=== PATIENT | female | born 1955 | race Caucasian/White ===

== ENCOUNTER 2019-08-30 15:32 | Outpatient (CLI) | payer OTHER, SELFPAY ==
[2019-08-30 15:46] LABS: Basophils Absolute Auto 0.1 K/mm3 (0.0-0.1); Basophils Percent Auto 0.5 % (0.2-1.2); Eosinophils Absolute Auto 0.2 K/mm3 (0-0.3); Eosinophils Percent Auto 1.8 % (0-4.4); Hematocrit 53.3 % (37.0-47.0); Hemoglobin 17.5 g/dL (12.0-15.0); Immature Granulocyte Absolute 0.06 K/mm3 (0.00-0.031); Immature Granulocyte Percent A 0.6 % (0-0.5); Lymphocytes Absolute Auto 2.81 K/mm3 (0.9-3.2); Lymphocytes Percent Auto 27.5 % (18.3-44.2); Mean Corpuscular HGB Conc 32.8 g/dl (32-36); Mean Corpuscular Hemoglobin 32.8 pg (26-34); Mean Platelet Volume 10.1 fl (7.4-10.4); Monocytes Absolute Auto 0.7 K/mm3 (0.1-0.6); Monocytes Percent Auto 6.8 % (2.6-8.5); Neutrophils Absolute Auto 6.4 K/mm3 (1.3-6.7); Neutrophils Percent Auto 62.8 % (45.5-73.1); Platelet Count Result 235 k/mm3 (150-375); Red Blood Count 5.33 M/mm3 (4.2-5.4); Red Cell Distribution Width 15.2 % (11.5-14.5); White Blood Count 10.2 K/mm3 (4.5-10.0)
[2019-08-30 16:46] LABS: Alanine Aminotransferase 18 U/L (4-35); Albumin Level 4.2 g/dL (3.5-5.1); Alkaline Phosphatase 84 U/L (38-126); Aspartate Amino Transferase 18 U/L (14-36); Bilirubin,Total 0.2 mg/dL (0.2-1.3); Blood Urea Nitrogen 19 mg/dL (7-17); Calcium 9.4 mg/dL (8.4-10.2); Carbon Dioxide 27 mmol/L (22-30); Chloride 103 mmol/L (98-107); Estimated Glomerular Filt Rate > 60; Glucose 118 mg/dL (65-105); Potassium 4.2 mmol/L (3.4-5.0); Sodium 138 mmol/L (137-145)
[2019-09-01 20:39] LABS: Erythropoietin (EPO) 20.9 mIU/mL (2.6-18.5)
== END 2019-08-30 15:33 | disposition home or self-care (01) ==
LOC: ANHLAB 15:34
PROVIDERS: PCP Family Medicine; Visit Provider Internal Medicine Hematology & Oncology
DX: D75.1 Secondary polycythemia (principal)
CPT/HCPCS: 36415; 80053; 82668; 85025

== ENCOUNTER 2020-02-25 13:39 | Outpatient (CLI) | payer OTHER, SELFPAY ==
--- NOTE | ~2020-02-25 | CT_ITS ---
EXAMINATION: CT lung screening DATE: 02/25/2020 14:22 INDICATION: Lung cancer screening. Tobacco dependence. Asthma. COPD. TECHNIQUE: Computed tomography (CT) of the chest was performed without intravenous contrast. The dose -length product was 379.29 mGy-cm. Automated exposure control and iterative reconstruction technique were employed. COMPARISON: CT dated 01/27/2019 FINDINGS: No thoracic lymphadenopathy. There is atherosclerosis of the aorta and coronary arteries. H eart size normal. No significant pleural or pericardial effusion. Moderate emphysema. No endobronchia l lesions. Calcified granuloma left lower lobe. There is left lower lobe atelectasis. No suspicious p ulmonary nodules or masses. Mild thoracic spondylosis. IMPRESSION: 1. Lung-RADS category 1: Negative. Continue annual screening with noncontrast low-dose chest CT in 12 months. Reviewed, dictated and finalized at location B. IMPRESSION: 1. Lung-RADS category 1: Negative. Continue annual screening with noncontrast l ow-dose chest CT in 12 months.
== END 2020-02-25 13:40 | disposition home or self-care (01) ==
PROVIDERS: PCP Family Medicine; Visit Provider Internal Medicine Critical Care Medicine
DX: Z12.2 Encounter for screening for malignant neoplasm of respiratory organs (principal); Z87.891 Personal history of nicotine dependence
CPT/HCPCS: G0297

== ENCOUNTER 2021-01-15 11:48 | Inpatient (IN) | payer OTHER, SELFPAY ==
[2021-01-15] VITALS (16 sets, daily range): BP systolic 95–127; BP diastolic 62–84; PULSE 63–120; RESP 21–31; TEMP 36.6–37.6; O2SAT 88–99; BMI 41.5
--- NOTE | ~2021-01-15 | CT_ITS ---
EXAMINATION: CTA chest PE protocol DATE: 01/15/2021 13:46 INDICATION: Shortness of breath. Elevated d-dimer. TECHNIQUE: Computed tomography angiography (CTA) of the chest was performed with 100 mL Omnipaque-350 intravenous contrast timed to evaluate the pulmonary arteries. Coronal maximum intensity projection 3D-reconstructions were created by the technologist. Automated exposure control and iterative reconst ruction technique were employed. Exam dose: 1170.90 mGy-cm total exam DLP. COMPARISON: 01/15/2021 portable AP chest 02/25/2020 CT lung screening FINDINGS: There is diagnostic contrast enhancement of the pulmonary arteries and no evidence of pulmo nary embolism. Cardiomegaly. No thoracic aortic aneurysm or dissection is evident. There is bilateral hilar and mediastinal lymphadenopathy, likely reactive. There are patchy bilateral pulmonary infiltrates, predominating in the dependent lower lobes. Emphysematous changes are noted. No pleural effusion. No pneumothorax. Status post cholecystectomy. Normal morphology of the adrenal glands. Included skeletal structures are unremarkable. IMPRESSION: Cardiomegaly Patchy bilateral pulmonary infiltrates, most prominent in the dependent bilateral lower lobes No evidence of pulmonary embolism Reviewed, dictated and finalized at Location A. Reviewed, dictated and finalized at location B. IMPRESSION: Cardiomegaly Patchy bilateral pulmonary infiltrates, most prominent in the dependent bilater al lower lobes No evidence of pulmonary embolism
--- NOTE | ~2021-01-15 | US_ITS ---
EXAMINATION: US venous doppler [facility] DATE: 01/19/2021 12:15 INDICATION: Positive Homans sign TECHNIQUE: Schwartz scale images without and with compression and Doppler images of the bilateral lower e xtremity veins were obtained. COMPARISON: None FINDINGS: The right common femoral vein, profunda femoral vein, femoral vein, popliteal vein, peroneal trunk, p osterior tibial veins, and greater saphenous vein are patent. The left common femoral vein, profunda femoral vein, femoral vein, popliteal vein, peroneal trunk, po sterior tibial veins, and greater saphenous vein are patent. IMPRESSION: 1. Patent bilateral lower extremity veins. No evidence of deep venous thrombosis. Reviewed, dictated and finalized at location B. IMPRESSION: 1. Patent bilateral lower extremity veins. No evidence of deep venous thrombosi s.
--- NOTE | ~2021-01-15 | XR_ITS ---
XR chest 1V portable 01/17/2021 06:01 Indication: CHF Procedure: AP portable chest, Comparison: 01/15/2021 Findings: Cardiomegaly with interstitial edema. Probable small pleural effusions. No pneumothorax. No acute osseous abnormality. Impression: 1: Cardiomegaly with mild interstitial edema. Reviewed, dictated and finalized at location A. Impression: 1: Cardiomegaly with mild interstitial edema.
--- NOTE | ~2021-01-15 | XR_ITS ---
XR chest 1V portable DATE: 01/19/2021 05:54 INDICATION: Dyspnea TECHNIQUE: Portable upright AP chest on 01/15/2021 at 0545 hours COMPARISON: 01/17/2021 portable AP chest at 0544 hours FINDINGS: Cardiomegaly. There is pulmonary vascular congestion and redistribution. Diffuse bilateral pulmonary interstitial prominence persists relatively unchanged since 01/17/2021, which may be due to p ulmonary edema, interstitial pneumonia superimposed upon chronic interstitial changes. IMPRESSION: No significant change since 01/17/2021. Cardiomegaly, pulmonary vascular congestion and red istribution, extensive pulmonary interstitial changes, suggesting congestive heart failure and pulmon trupti edema. Superimposed interstitial pneumonia and chronic underlying fibrotic change are not exclude d. Reviewed, dictated and finalized at location A. IMPRESSION: No significant change since 01/17/2021. Cardiomegaly, pulmonary vascu lar congestion and redistribution, extensive pulmonary interstitial changes, alegre ggesting congestive heart failure and pulmonary edema. Superimposed interstitia l pneumonia and chronic underlying fibrotic change are not excluded.
--- NOTE | ~2021-01-15 | XR_ITS ---
EXAMINATION: XR barium swallow modified DATE: 01/19/2021 14:41 INDICATION: Coughing. TECHNIQUE: The patient was given barium-containing material of multiple consistencies to swallow by ky portillo speech pathologist while I performed fluoroscopy. Dose-area product was 3.919 Gy-cm2. 4 minutes fluoroscopy time FINDINGS: Oral Stage: Normal Pharyngeal Phase: Trace laryngeal penetration with thin liquids and nectar thick liquids, mostly kiki ared with swallow No aspiration Cervical/Esophageal Stage: Within functional limits IMPRESSION: Modified esophagram findings as above. Please refer to the speech therapy report for spec ific recommendations. Reviewed, dictated and finalized at Location A. Reviewed, dictated and finalized at location A. IMPRESSION: Modified esophagram findings as above. Please refer to the speech t herapy report for specific recommendations.
--- NOTE | ~2021-01-15 | CT_ITS ---
EXAMINATION: CT brain wo con DATE: 01/19/2021 12:03 INDICATION: Confusion. TECHNIQUE: Computed tomography (CT) of the head was performed without intravenous contrast. The mA wa s adjusted according to patient size. Iterative reconstruction technique was employed. The dose-lengt h product was 605.33 mGy-cm. COMPARISON: None FINDINGS: There is no intracranial hemorrhage, acute infarction, or abnormal intracranial mass lesion . The ventricles are normal in size. There is mucosal thickening in the paranasal sinuses. There is t hickening and sclerosis of the jones of left maxillary sinus, consistent with chronic sinusitis. The mastoid air cells are normal. The orbits are normal. IMPRESSION: 1. Normal brain. 2. Chronic sinusitis. Reviewed, dictated and finalized at location A.
--- NOTE | ~2021-01-15 | XR_ITS ---
EXAMINATION: XR chest 1V portable INDICATION: Hypoxia and respiratory failure TECHNIQUE: Portable AP chest at 1204 hours COMPARISON: 02/25/2020, 08/31/2005 FINDINGS: Cardiomegaly is noted. There are airspace opacities of the mid and lower lung zones. No ple ural effusion or pneumothorax is identified. The visualized osseous structures are unremarkable. IMPRESSION: 1. Cardiomegaly. 2. Opacities of the mid and lower lung zones which could reflect atelectasis versus pneumonia versus pulmonary edema. Reviewed, dictated and finalized at location A. IMPRESSION: 1. Cardiomegaly. 2. Opacities of the mid and lower lung zones which could reflect atelectasis ve rsus pneumonia versus pulmonary edema.
--- NOTE | ~2021-01-15 | XR_ITS ---
EXAMINATION: XR chest 2V DATE: 01/21/2021 12:05 INDICATION: Chronic obstructive pulmonary disease. Congestive heart failure. TECHNIQUE: Frontal and lateral views of the chest were obtained. COMPARISON: Chest single view 01/19/2021, chest CT 01/15/2021 FINDINGS: There is a diffuse interstitial pattern in the lungs. There are small pleural effusions. No pneumothorax. Cardiomegaly is noted. IMPRESSION: 1. Diffuse interstitial pattern in the lungs, consistent with mild pulmonary edema. 2. Small pleural effusions. 3. Cardiomegaly. Reviewed, dictated and finalized at location A. IMPRESSION: 1. Diffuse interstitial pattern in the lungs, consistent with mild pulmonary ed kwaku. 2. Small pleural effusions. 3. Cardiomegaly.
--- NOTE | 2021-01-15 11:56 | ECG_ITS ---
Measurements Intervals [place] Rate: 89 P: 63 AR: 174 QRS: 124 QRSD: 88 T: 13 QT: 380 QTc: 463 Interpretive Statements SINUS RHYTHM LEFT ATRIAL ENLARGEMENT INCOMPLETE RIGHT BUNDLE BRANCH BLOCK BORDERLINE R WAVE PROGRESSION, ANTERIOR LEADS HIGH LATERAL INFARCT, AGE INDETERMINATE BORDERLINE ST-T WAVE ABNORMALITY- ANT/INF LEADS ABNORMAL ECG Electronically Signed On 01-15-2021 12:54:20 CDT by Robby Courtney D.O.
--- NOTE | 2021-01-15 12:04 | ED.SOB ---
HPI - SOB/Dyspnea General Chief Complaint: Shortness of Breath/Dyspnea Stated Complaint: SOB Time Seen by Provider: 01/15/21 11:49 Source: patient, EMS, RN notes reviewed and old records reviewed Mode of arrival: EMS Limitations: clinical condition History of Present Illness HPI Narrative: This is a 65 year old female smoker who presents for evaluation of shortness of breath that started today. PAtient reports shortness of breath today. She also reports a chronic cough. She denies chest pain, abdominal pain, nausea, vomiting or diarrhea . EMS reports they found patient at home lethargic with oxygen saturation of 60% on room air. She was placed on BIPAP by EMS and she was given neb tx, IVF, and solumedrol. Patient states she feels better. EMS reports patient is much improved. She was 99% on BIPAP. Related Data Home Medications Medication Instructions Recorded Confirmed aspirin 81 mg tablet 81 mg PO DAILY 06/12/19 01/15/21 cholecalciferol (vitamin D3) 1 unit PO DAILY 01/15/21 01/15/21 [Vitamin D3] Allergies Allergy/AdvReac Type Severity Reaction Status Date / Time No Known Allergies Allergy Unknown Verified 01/15/21 11:58 Review of Systems Review of Systems: All systems reviewed & are unremarkable except as noted in HPI and below PMFSH Past Medical History Medical History Centrilobular emphysema Claudication of both lower extremities COPD (chronic obstructive pulmonary disease) Hypothyroidism, acquired, autoimmune Hypoxemia Mixed hyperlipidemia Polycythemia secondary to hypoxia Tobacco abuse disorder Type 2 diabetes mellitus with hyperglycemia, without long-term current use of insulin Surgical History Surgical History History of tonsillectomy History of tubal ligation Family History Family History Mother Diabetes mellitus Hypertension Family history of arthritis Family history of thyroid disease Patient's mother is Sibling Diabetes mellitus Asthma Patient's brother is in good health Family history of thyroid disease Father Patient's father is in good health Social History Social History (Updated 09/24/20 @ 09:02 by Lisa Ochoa) Social History: Smoking packs per day: 2 Smoking cigarettes per day: 40.0 Years smoked: 50 Smoking pack-years: 100.00 Smoking status: Current every day smoker Tobacco type: cigarettes Second hand tobacco smoke exposure: Yes Alcohol intake: never Substance use: never Substance use type: does not use Additional living arrangements comments: Pt lives with her son Gender identity (if verbalized by the patient): Female Sexual Orientation (if Verbalized by the Patient): Straight or Heterosexual Spiritual care concerns: No Exam Const: General: ill appearing; No diaphoretic Nutritional Appearance: well nourished Orientation/consciousness: patient oriented x3 Eyes: Pupils: Equal, round and reactive pupils present EOM: EOMs intact bilaterally Chest: Chest palpation & inspection: normal inspection of the chest Resp: Effort & Inspection: normal respiratory effort, no retractions and tachypneic Auscultation: clear to auscultation bilaterally Cardio: Rate: regular rate Rhythm: regular rhythm Heart sounds: no murmurs GI: GI Palp: Yes Soft to palpation, No Tenderness to palpation present (GI) and No Guarding due to palpation present (GI) Auscultation: normal bowel sounds Skin: General skin exam: normal color Neuro: General: moves all extremities Psych: Mental Status: mental status grossly normal Affect: normal affect Course Reevaluation(s) Reevaluation #1: PAtient appears more awake. ABG shows mildly worse PCO2 so adjustments made to BIP AP with increase pressure and RR . Will reassess. She has no complaints.
[2021-01-15 12:06] LABS: Glucose Point of Care 298 mg/dl (65-105)
[2021-01-15 12:18] LABS: Basophils Absolute Auto 0.1 K/mm3 (0.0-0.1); Basophils Percent Auto 0.5 % (0.2-1.2); Hematocrit 59.2 % (37.0-47.0); Hemoglobin 19.4 g/dL (12.0-15.0); Immature Granulocyte Absolute 0.05 K/mm3 (0.00-0.031); Immature Granulocyte Percent A 0.5 % (0-0.5); Lymphocytes Absolute Auto 0.57 K/mm3 (0.9-3.2); Lymphocytes Percent Auto 5.8 % (18.3-44.2); Mean Corpuscular HGB Conc 32.8 g/dl (32-36); Mean Corpuscular Hemoglobin 32.7 pg (26-34); Mean Corpuscular Volume 99.8 fl (80-100); Mean Platelet Volume 10.3 fl (7.4-10.4); Monocytes Absolute Auto 0.9 K/mm3 (0.1-0.6); Monocytes Percent Auto 9.3 % (2.6-8.5); Neutrophils Absolute Auto 8.2 K/mm3 (1.3-6.7); Neutrophils Percent Auto 83.9 % (45.5-73.1); Platelet Count Result 167 k/mm3 (150-375); Red Blood Count 5.93 M/mm3 (4.2-5.4); Red Cell Distribution Width 21.1 % (11.5-14.5); White Blood Count 9.8 K/mm3 (4.5-10.0)
[2021-01-15 12:22] LABS: Alveolar/Arterial O2 Gradient 432.3 mmHg; Base Excess ABG -1.9 mEq/l (+/-2.0); Fractional Inspired Oxygen 80 %; Oxygen Content ABG 23.6 %vol (16.0-22.0); Oxygen Saturation ABG 95.7 % (95.0-100.0); Oxyhemoglobin 84.5 % THb (90.0-100.0); PCO2 ABG 49.7 mmHg (35.0-45.0); PO2 ABG 85.9 mmHg (80.0-100.0); PO2 FiO2 Ratio Arterial Blood 1.07 %; Total Hemoglobin 19.9 g/dL (12.0-18.0)
[2021-01-15 12:23] LABS: Add Urine Microscopic? YES; Appearance Urine Clear (Clear); Bacteria Urine Trace /hpf; Bilirubin Urine 2+ (Negative); Blood Urine Negative (Negative); Color Urine Amber (Yellow); Glucose Urine UA 2+ mg/dL (Negative); Hyaline Casts Urine 15-19 /lpf; Ketones Urine Negative (Negative); Leukocyte Esterase Ur Negative LEU/UL (Negative); Mucus Urine Few /lpf; Nitrate Urine Negative (Negative); Protein Urine 3+ mg/dL (Negative); RBC Urine 0-2 /hpf (0-2); Specific Grav Ur 1.028 (1.001-1.035); Squamous Epithelial Cell Urine Rare /hpf (Few); WBC Urine 0-3 /hpf
[2021-01-15 12:24] LABS: Device NON-INVASIVE VENT; Modified Allen's Test Pass; Site Drawn LEFT RADIAL
[2021-01-15 12:25] LABS: Non-Invasive Expiratory Pressure 6 CMH2O; Non-Invasive Inspiratory Pressure 12 CMH2O; Non-Invasive Vent Rate 16 /MIN
[2021-01-15 12:29] LABS: Alanine Aminotransferase 71 U/L (4-35); Albumin Level 3.9 g/dL (3.5-5.1); Alkaline Phosphatase 162 U/L (38-126); Anion Gap 6 mmol/L (8-16); Aspartate Amino Transferase 43 U/L (14-36); Bilirubin,Total 3.6 mg/dL (0.2-1.3); Blood Urea Nitrogen 22 mg/dL (7-17); Calcium 8.6 mg/dL (8.4-10.2); Carbon Dioxide 27 mmol/L (22-30); Chloride 100 mmol/L (98-107); Estimated CRCL calculation 101 ml/min; Estimated Glomerular Filt Rate > 60; Glucose 254 mg/dL (65-110); Magnesium 2.1 mg/dL (1.6-2.3); Potassium 4.3 mmol/L (3.4-5.0); Sodium 133 mmol/L (137-145)
[2021-01-15 12:30] LABS: Lactic Acid Reflex 1.2 mmol/L (0.7-2.1)
[2021-01-15 12:33] LABS: INR 1.1; Prothrombin Time 14.2 Seconds (11.1-14.7)
[2021-01-15 12:34] LABS: Partial Thromboplastin Time 29.2 SECONDS (22.3-36.8)
[2021-01-15 12:36] LABS: D Dimer 0.67 ug/mL (<0.48)
[2021-01-15 12:51] LABS: NT Pro B Type Natriuretic Pept 4970 pg/mL (5-100); Troponin I 0.036 ng/mL (0.000-0.034)
--- NOTE | 2021-01-15 13:57 | ECG_ITS ---
Measurements Intervals [place] Rate: 119 P: 178 MN: 211 QRS: 132 QRSD: 102 T: -53 QT: 330 QTc: 464 Interpretive Statements SINUS TACHYCARDIA WITH FIRST DEGREE AV BLOCK INCOMPLETE RIGHT BUNDLE BRANCH BLOCK BORDERLINE R WAVE PROGRESSION, ANTERIOR LEADS HIGH LATERAL INFARCT, AGE INDETERMINATE T WAVE ABNORMALITY IN ANT/INF LEADS- CONSIDER ISCHEMIA ABNORMAL ECG Electronically Signed On 01-15-2021 14:40:20 CDT by Robby Courtney D.O.
[2021-01-15 14:07] LABS: Alveolar/Arterial O2 Gradient 437.7 mmHg; Base Excess ABG -2.5 mEq/l (+/-2.0); Carboxyhemoglobin 9.7 % THb (0-2.0); Fractional Inspired Oxygen 80 %; HCO3 ABG 25.6 mEq/l (22.0-26.0); Methemoglobin ABG 0.6 %THb (0-1.5); Oxygen Content ABG 24.3 %vol (16.0-22.0); Oxygen Saturation ABG 93.1 % (95.0-100.0); Oxyhemoglobin 84.4 % THb (90.0-100.0); PCO2 ABG 55.4 mmHg (35.0-45.0); PO2 ABG 74.5 mmHg (80.0-100.0); PO2 FiO2 Ratio Arterial Blood 0.93 %; Reduced Hemoglobin 5.3 %THb (0-5.0); Total Hemoglobin 20.5 g/dL (12.0-18.0)
[2021-01-15 14:10] LABS: Device NON-INVASIVE VENT; Modified Allen's Test Pass; Non-Invasive Expiratory Pressure 6 CMH2O; Non-Invasive Inspiratory Pressure 12 CMH2O; Non-Invasive Vent Rate 16 /MIN; Site Drawn LEFT RADIAL; pH ABG 7.283 (7.350-7.450)
--- NOTE | 2021-01-15 14:10 | PC.NURSE ---
patient son requests updates : Shashi [phone]
[2021-01-15] MEDS: NICOTINE (*PBKC) 21 MG PATCH 1 PATCH TRANSDERM (17:14)
[2021-01-15 18:02] LABS: Troponin I 0.043 ng/mL (0.000-0.034)
--- NOTE | 2021-01-15 18:05 | ADMGEN ---
This patient, Sarah Rodriguez, was admitted to IMU Room 209-01 @ 1730. Patient/ oriented to hospital policies and general routines including ID bracelet, bed and alarms, visiting hours, pain management, procedures, bathroom and other care routines, personal items, smoking policy, room service/diet, and visiting hours. BIPAP ON 26/11 RATE 20 70% fio2. MONITOR ON SR 80'S Patient encouraged to report perceived risks to care and to ask questions if they do not understand what they are told or what they should do. . Purse and medication locked in closet- pt denied need she has items / that need to go in safe
[2021-01-15 18:30] LABS: Alveolar/Arterial O2 Gradient 348.9 mmHg; Base Excess ABG -2.2 mEq/l (+/-2.0); Carboxyhemoglobin 5.8 % THb (0-2.0); Fractional Inspired Oxygen 70 %; HCO3 ABG 26.5 mEq/l (22.0-26.0); Methemoglobin ABG 0.6 %THb (0-1.5); Oxygen Content ABG 26.5 %vol (16.0-22.0); Oxygen Saturation ABG 95.3 % (95.0-100.0); Oxyhemoglobin 89.7 % THb (90.0-100.0); PCO2 ABG 58.4 mmHg (35.0-45.0); PO2 ABG 87.4 mmHg (80.0-100.0); PO2 FiO2 Ratio Arterial Blood 1.25 %; Reduced Hemoglobin 3.9 %THb (0-5.0)
[2021-01-15 18:32] LABS: Modified Allen's Test Pass; Site Drawn LEFT RADIAL; pH ABG 7.274 (7.350-7.450)
[2021-01-15 18:33] LABS: Arterial Blood Gas PEEP 6 cmH2O; Arterial Blood Gas Ventilator rate 20 /MIN; Device NON-INVASIVE VENT; Peak Inspiratory Pressure 16 cmH2O
[2021-01-15 18:46] LABS: Glucose Point of Care 337 mg/dl (65-105)
[2021-01-15] MEDS: methylPREDNISolone SOD SUCC 125 MG VIAL 60 MG IV PUSH (18:49)
[2021-01-15 20:05] LABS: Troponin I 0.045 ng/mL (0.000-0.034)
[2021-01-15 21:16] LABS: Base Excess ABG -1.5 mEq/l (+/-2.0); Fractional Inspired Oxygen 70 %; Glucose Point of Care 332 mg/dl (65-105); HCO3 ABG 27.2 mEq/l (22.0-26.0); Methemoglobin ABG 0.7 %THb (0-1.5); Oxygen Content ABG 27.4 %vol (16.0-22.0); Oxygen Saturation ABG 97.2 % (95.0-100.0); Oxyhemoglobin 92.7 % THb (90.0-100.0); PCO2 ABG 59.3 mmHg (35.0-45.0); PO2 ABG 106.4 mmHg (80.0-100.0); PO2 FiO2 Ratio Arterial Blood 1.52 %; Reduced Hemoglobin 2.6 %THb (0-5.0)
[2021-01-15 21:21] LABS: pH ABG 7.279 (7.350-7.450)
[2021-01-15 21:22] LABS: Device NON-INVASIVE VENT; Modified Allen's Test Pass; Non-Invasive Expiratory Pressure 8 CMH2O; Non-Invasive Inspiratory Pressure 20 CMH2O; Non-Invasive Vent Rate 22 /MIN; Site Drawn RIGHT RADIAL
[2021-01-15] MEDS: FUROSEMIDE INJ 40 MG/4 ML VIAL IV PUSH (21:45)
[2021-01-15] MEDS: INSULIN ASPART (*BKC) 100 UNITS/ML SUB-Q (21:46)
[2021-01-16] VITALS (25 sets, daily range): BP systolic 106–122; BP diastolic 58–81; PULSE 55–88; RESP 20–26; TEMP 35.8–36.9; O2SAT 91–98
[2021-01-16] MEDS: methylPREDNISolone SOD SUCC 125 MG VIAL 60 MG IV PUSH ×5 (00:07→23:58)
[2021-01-16 00:29] LABS: Glucose Point of Care 353 mg/dl (65-105)
[2021-01-16] MEDS: INSULIN ASPART (*BKC) 100 UNITS/ML SUB-Q ×4 (01:47→17:30)
--- NOTE | 2021-01-16 03:33 | PM.IMHP ---
H&P: HPI History of Present Illness Date/Time: 01/16/21 03:33 Chief Complaint: SHORTNESS OF BREATH Narrative: THIS IS A 65-YEAR-OLD FEMALE WITH PAST MEDICAL HISTORY SIGNIFICANT FOR TYPE 2 DIABETES MELLITUS, DYSLIPIDEMIA, HYPOTHYROIDISM COPD. PATIENT PRESENTED TODAY TO THE EMERGENCY ROOM DUE TO WORSENING SHORTNESS OF BREATH SHE CURRENTLY SMOKES 2 PACKS OF CIGARETTES DAILY. HE EMS WAS CALLED TO THE HOUSE AND SHE WAS FOUND TO BE LETHARGIC WITH OXYGEN SATURATION OF 60% ON ROOM AIR SHE WAS PLACED ON BIPAP BY EMS AND GIVEN IV SOLU-MEDROL AND NEB TREATMENT ON ROUTE. AT THE TIME OF MY VISIT PATIENT WAS ON BIPAP SHE WAS REQUESTING SOMETHING TO EAT AND SHE WAS DENYING ANY DISCOMFORT AT THAT TIME. HISTORY STAY TEMO WAS OBVIOUSLY LIMITED DUE TO PATIENT BEING ON BIPAP. MOST OF THE HISTORY WAS OBTAINED FROM EMERGENCY ROOM MEDICAL RECORDS AND REVIEW OF CHART. PRELIMINARY WORKUP WAS SIGNIFICANT FOR CTA NEGATIVE FOR PULMONARY EMBOLISM AND PATCHY PULMONARY INFILTRATES. Review of Systems Review of Systems: ROS unobtainable: Yes unobtainable due to medical condition ( ON BIPAP) [facility] Past Medical History Medical History Centrilobular emphysema Claudication of both lower extremities COPD (chronic obstructive pulmonary disease) Hypothyroidism, acquired, autoimmune Hypoxemia Mixed hyperlipidemia Polycythemia secondary to hypoxia Tobacco abuse disorder Type 2 diabetes mellitus with hyperglycemia, without long-term current use of insulin Surgical History Surgical History History of tonsillectomy History of tubal ligation Family History Family History Mother Diabetes mellitus Hypertension Family history of arthritis Family history of thyroid disease Patient's mother is Sibling Diabetes mellitus Asthma Patient's brother is in good health Family history of thyroid disease Father Patient's father is in good health Social History Social History (Updated 09/24/20 @ 09:02 by Lisa Ochoa) Social History: Smoking packs per day: 2 Smoking cigarettes per day: 40.0 Years smoked: 50 Smoking pack-years: 100.00 Smoking status: Current every day smoker Tobacco type: cigarettes Second hand tobacco smoke exposure: Yes Alcohol intake: never Substance use: never Substance use type: does not use Additional living arrangements comments: Pt lives with her son Gender identity (if verbalized by the patient): Female Sexual Orientation (if Verbalized by the Patient): Straight or Heterosexual Spiritual care concerns: No Meds Home Medications and Allergies Home Medications Medication Instructions Recorded Confirmed Type aspirin 81 mg tablet 81 mg PO DAILY 06/12/19 01/15/21 History furosemide 20 mg tablet 20 mg PO QAM PRN #30 tablet 09/24/20 01/15/21 Rx levothyroxine 175 mcg tablet 175 mcg PO DAILY #90 tablet 09/25/20 01/15/21 Rx meloxicam 15 mg tablet 15 mg PO DAILY #90 tablet 09/25/20 01/15/21 Rx metformin 1,000 mg tablet 1,000 mg PO BID #180 tablet 09/25/20 01/15/21 Rx simvastatin 20 mg tablet 20 mg PO DAILY #90 tablet 09/25/20 01/15/21 Rx sitagliptin 100 mg tablet 100 mg PO DAILY #90 tablet 12/24/20 01/15/21 Rx fluticasone fur. 100 mcg-umeclid 1 inh INHALATION DAILY #60 each 01/01/21 01/15/21 Rx 62.5 mcg-vilant 25 mcg inhalat.powder albuterol sulfate 90 mcg/actuation 2 puff INHALATION Q4H PRN #18 gm 01/05/21 01/15/21 Rx aerosol inhaler cholecalciferol (vitamin D3) 1 unit PO DAILY 01/15/21 01/15/21 History [Vitamin D3] Allergies Allergy/AdvReac Type Severity Reaction Status Date / Time No Known Allergies Allergy Unknown Verified 01/15/21 11:58 Vital Signs Vital Signs - 24 hr 01/15/21 11:47 01/15/21 11:55 01/15/21 11:56 Temperature 99.7 F H Pulse Rate 94 93 Respiratory Rate 31 H Blood
[2021-01-16 04:01] LABS: Glucose Point of Care 300 mg/dl (65-105)
[2021-01-16 05:13] LABS: Basophils Percent Auto 0.2 % (0.2-1.2); Hematocrit 57.6 % (37.0-47.0); Hemoglobin 18.8 g/dL (12.0-15.0); Immature Granulocyte Absolute 0.04 K/mm3 (0.00-0.031); Immature Granulocyte Percent A 0.4 % (0-0.5); Lymphocytes Absolute Auto 0.53 K/mm3 (0.9-3.2); Lymphocytes Percent Auto 5.4 % (18.3-44.2); Mean Corpuscular HGB Conc 32.6 g/dl (32-36); Mean Corpuscular Hemoglobin 32.2 pg (26-34); Mean Corpuscular Volume 98.8 fl (80-100); Mean Platelet Volume 10.9 fl (7.4-10.4); Monocytes Absolute Auto 0.6 K/mm3 (0.1-0.6); Neutrophils Absolute Auto 8.7 K/mm3 (1.3-6.7); Platelet Count Result 181 k/mm3 (150-375); Red Blood Count 5.83 M/mm3 (4.2-5.4); Red Cell Distribution Width 20.7 % (11.5-14.5); White Blood Count 9.9 K/mm3 (4.5-10.0)
[2021-01-16 05:22] LABS: Alanine Aminotransferase 57 U/L (4-35); Albumin Level 3.3 g/dL (3.5-5.1); Alkaline Phosphatase 144 U/L (38-126); Anion Gap 3 mmol/L (8-16); Aspartate Amino Transferase 25 U/L (14-36); Bilirubin,Total 1.4 mg/dL (0.2-1.3); Blood Urea Nitrogen 24 mg/dL (7-17); Calcium 8.7 mg/dL (8.4-10.2); Carbon Dioxide 30 mmol/L (22-30); Chloride 99 mmol/L (98-107); Estimated CRCL calculation 108 ml/min; Estimated Glomerular Filt Rate > 60; Glucose 258 mg/dL (65-110); Potassium 4.6 mmol/L (3.4-5.0); Sodium 132 mmol/L (137-145)
[2021-01-16 05:30] LABS: NT Pro B Type Natriuretic Pept 2260 pg/mL (5-100)
[2021-01-16] MEDS: LEVOTHYROXINE SODIUM 100 MCG TABLET PO (05:54)
[2021-01-16] MEDS: LEVOTHYROXINE SODIUM 75 MCG TABLET PO (05:54)
[2021-01-16 06:09] LABS: Alveolar/Arterial O2 Gradient 258.1 mmHg; Base Excess ABG 0.3 mEq/l (+/-2.0); Carboxyhemoglobin 1.9 % THb (0-2.0); Device NON-INVASIVE VENT; Fractional Inspired Oxygen 55 %; HCO3 ABG 28.8 mEq/l (22.0-26.0); Methemoglobin ABG 0.5 %THb (0-1.5); Modified Allen's Test Pass; Oxygen Content ABG 26.1 %vol (16.0-22.0); Oxygen Saturation ABG 91.5 % (95.0-100.0); Oxyhemoglobin 90.1 % THb (90.0-100.0); PCO2 ABG 59.3 mmHg (35.0-45.0); PO2 ABG 68.1 mmHg (80.0-100.0); PO2 FiO2 Ratio Arterial Blood 1.24 %; Reduced Hemoglobin 7.5 %THb (0-5.0); Site Drawn LEFT RADIAL; Total Hemoglobin 20.7 g/dL (12.0-18.0); pH ABG 7.304 (7.350-7.450)
[2021-01-16 06:10] LABS: Non-Invasive Expiratory Pressure 8 CMH2O; Non-Invasive Inspiratory Pressure 20 CMH2O; Non-Invasive Vent Rate 22 /MIN
[2021-01-16 08:50] LABS: Glucose Point of Care 280 mg/dl (65-105)
[2021-01-16] MEDS: FUROSEMIDE INJ 40 MG/4 ML VIAL IV PUSH ×2 (08:51→17:31)
[2021-01-16] MEDS: NICOTINE (*PBKC) 21 MG PATCH 1 PATCH TRANSDERM (08:51)
[2021-01-16] MEDS: ASPIRIN 81 MG ENTERIC TABLET PO (08:52)
[2021-01-16] MEDS: CHOLECALCIFEROL 1,000 UNITS TABLET 5000 UNITS PO (08:52)
[2021-01-16] MEDS: ENOXAPARIN 40 MG/0.4 ML SYRINGE SUB-Q (08:52)
[2021-01-16] MEDS: SIMVASTATIN 20 MG TABLET PO (08:52)
--- NOTE | 2021-01-16 11:02 | PM.IMPN ---
Progress Note: A&P Assessment and Plan (1) Acute respiratory failure with hypoxia and hypercapnia: Code(s): J96.01 - Acute respiratory failure with hypoxia; J96.02 - Acute respiratory failure with hypercapnia Status: Acute Assessment and Plan: Patient found at home lethargic with a pulse ox of 60% on room air. Blood gas here was 7.32/50/86 on noninvasive ventilation 05/18. Etiology unclear but suspect multifactorial with CHF, PNA, COPD, undiagnosed ANIBAL and /or COVID. ABG this morning was 7.30/59/68 on 30/01. Will discuss with resp about her TV. Trial off the BiPAP today. (2) CHF (congestive heart failure): Code(s): I50.9 - Heart failure, unspecified Status: Acute Assessment and Plan: chest x-ray finding showing bilateral lower lobe airspace disease and cardiomegaly. Her BNP was 4970. She has pedal edema. This could be right heart failure from her chronic hypoxia. She may have LV dysfunction as well. Echocardiogram ordered. Continue Lasix IV. Monitor urine output. (3) Elevated troponin: Code(s): R77.8 - Other specified abnormalities of plasma proteins Status: Acute Assessment and Plan: Patient with mildly elevated troponins but flat overall. Suspect this is related to the respiratory failure as a nonischemic myocardial injury. (4) Pneumonia: Code(s): J18.9 - Pneumonia, unspecified organism Status: Acute Assessment and Plan: CXR showing bilateral lower lobe airspace disease. COVID testing obtained. Blood cultures collected. Will check sputum culture. Continue Rocephin azithromycin. Add nebulizer treatments. (5) Person under investigation for COVID-19: Code(s): Z20.822 - Contact with and (suspected) exposure to COVID-19 Status: Acute Assessment and Plan: COVID testing underway. Continue appropriate isolation. (6) Tobacco abuse disorder: Code(s): Z72.0 - Tobacco use Status: Acute Assessment and Plan: Patient smokes 2 packs a day. She was educated about the benefits of smoking cessation. Nicotine patch has been provided. (7) Type 2 diabetes mellitus with hyperglycemia, without long-term current use of insulin: Code(s): E11.65 - Type 2 diabetes mellitus with hyperglycemia Status: Acute Assessment and Plan: A1c 7.9 in November. Glucose is in the 200-300 range. Oral medications on hold. Continue sliding scale protocol. Hypoglycemia protocol available as needed. Add Lantus at night. (8) COPD (chronic obstructive pulmonary disease): Code(s): J44.9 - Chronic obstructive pulmonary disease, unspecified Status: Acute Assessment and Plan: COPD with exacerbation. Will continue her Trelegy. Add nebulizer treatments. Continue the Solu-Medrol. (9) Polycythemia secondary to hypoxia: Code(s): D75.1 - Secondary polycythemia Status: Acute Assessment and Plan: hemoglobin 19 on admission. This is a known finding for this patient. Most likely this was related to chronic hypoxia but Erythropoeitin level elevated in August. Check DONAVON (10) DVT prophylaxis: Code(s): Z29.9 - Encounter for prophylactic measures, unspecified Status: Acute Assessment and Plan: Lovenox Subjective Date/time seen: 01/16/21 11:02 Interval history: 65yo female with DM, COPD and tobacco abuse here for acute respiratory failure. Juana smokes up to 2ppd. She has been having pedal edema. She does sleep in the bed for a few hours but then a recliner due to pain and not SOB. No CP. COVID vaccine in September. No exposure to COVID that she is aware of. No anosmia or dysgeusia. No pleuritic chest pain or calf pain. She has a cough productive of yellowish sputum. No fevers but having chills at home. SOB much better today and requesting t have mask removed. SHe was able to come of the mask for breakfast and did well with nasal cannula
[2021-01-16] MEDS: IPRATROPIUM BR 0.02% INH SOLN 0.5 MG/2.5 ML VIAL INHALATION ×2 (13:29→20:39)
[2021-01-16] MEDS: ALBUTEROL SULFATE NEB 2.5 MG/0.5 ML INH INHALATION ×2 (13:29→20:39)
[2021-01-16 13:53] LABS: Glucose Point of Care 299 mg/dl (65-105)
[2021-01-16] MEDS: WATER FOR IRRIGATION, STERILE 1,000 ML BOTTLE 1000 ML (14:07)
[2021-01-16 17:12] LABS: Glucose Point of Care 372 mg/dl (65-105)
[2021-01-16 20:09] LABS: Glucose Point of Care 481 mg/dl (65-105)
[2021-01-16] MEDS: INSULIN HUMAN REGULAR (*BKC) 100 UNITS/ML 12 UNITS SUB-Q (21:01)
[2021-01-16] MEDS: INSULIN GLARGINE (*BKC) 100 UNITS/ML 18 UNITS SUB-Q (21:01)
[2021-01-17] VITALS (22 sets, daily range): BP systolic 91–124; BP diastolic 59–88; PULSE 57–87; RESP 16–31; TEMP 35.8–36.8; O2SAT 89–99
--- NOTE | 2021-01-17 | ECHO_ITS ---
Patient Info Name: Sarah Rodriguez Age: 65 years : 1955 Gender: Female Ht: 67 in Wt: 280 lbs BSA: 2.52 m2 HR: 83 bpm Technical Quality: Fair Exam Date: 01/17/2021 8:21 AM Exam Location: [facility] Patient Status: Inpatient Admit Date: 01/15/2021 Staff Ordering Physician: Chata Peterson MD Computer Instructor: Ekta Dawn RDCS Attending Provider: Ayesha Fuller MD Referring Physician: Nicholas ELIZABETH; Exam Type: CA echo dop color flow w con Study Info Complete two-dimensional, color flow and Doppler transthoracic echocardiogram is performed. Summary 1. Complete two-dimensional, color flow and Doppler transthoracic echocardiogram is performed. 2. Left ventricular chamber dimension is normal. 3. Left ventricular systolic function is normal, estimated at 60-65%. 4. There is moderately increased left ventricular wall thickness. 5. The left ventricular diastolic function is abnormal. 6. E/e' 18 is elevated. 7. Right ventricular chamber dimension is mildly enlarged. 8. Left atrial chamber dimension is mildly enlarged. 9. Right atrial chamber dimension is moderately enlarged. 10. There is mild mitral valve regurgitation. 11. There is mild tricuspid valve regurgitation. 12. Mild pulmonary hypertension, estimated pulmonary arterial systolic pressure is 43 mmHg. Left Ventricle E/e' 18 is elevated. Left ventricular chamber dimension is normal. Left ventricular systolic function is normal, estimated at 60-65%. There is moderately increased left ventricular wall thickness. The left ventricular diastolic function is abnormal. Right Ventricle Right ventricular systolic function is normal and with normal TAPSE 1.7 cm. Right ventricular chamber dimension is mildly enlarged. Left Atria Left atrial chamber dimension is mildly enlarged. Right Atria Right atrial chamber dimension is moderately enlarged. Aortic Valve The aortic valve is not well visualized. There is no aortic valve stenosis. There is no aortic valve regurgitation. Pulmonic Valve There is no pulmonic regurgitation. Mitral Valve There is no mitral valve stenosis. There is mild mitral valve regurgitation. Tricuspid Valve There is mild tricuspid valve regurgitation. Mild pulmonary hypertension, estimated pulmonary arterial systolic pressure is 43 mmHg. Pericardium/Pleural There is no pericardial effusion. Inferior Vena Cava Normal inferior vena cava with >50% collapse upon inspiration consistent with normal right atrial pressure, 5 mmHg. Aorta The aortic root size at the sinus of Valsalva is normal. Left Ventricular Outflow Tract Name Value Normal LVOT 2D LVOT Diameter 1.95 cm LVOT Doppler LVOT Peak Gradient 3 mmHg LVOT Mean Gradient 1 mmHg LVOT VTI 22.43 cm LVOT VTI/AV VTI Ratio 0.78 LVOT Stroke Volume 59.51 ml LVOT CO 4.84 l/min LVOT CI 2.08 L/min/m2 Mitral Valve
[2021-01-17 00:06] LABS: Glucose Point of Care 386 mg/dl (65-105)
[2021-01-17 00:31] LABS: Glucose Point of Care 380 mg/dl (65-105)
[2021-01-17] MEDS: ALBUTEROL SULFATE NEB 2.5 MG/0.5 ML INH INHALATION ×4 (01:37→19:34)
[2021-01-17] MEDS: IPRATROPIUM BR 0.02% INH SOLN 0.5 MG/2.5 ML VIAL INHALATION ×4 (01:38→19:35)
[2021-01-17 02:04] LABS: SARS-CoV-2 RNA PCR Negative
[2021-01-17 04:15] LABS: Alveolar/Arterial O2 Gradient 199.8 mmHg; Base Excess ABG 3.9 mEq/l (+/-2.0); Fractional Inspired Oxygen 55 %; HCO3 ABG 33.7 mEq/l (22.0-26.0); Oxygen Saturation ABG 97.8 % (95.0-100.0); Oxyhemoglobin 96.1 % THb (90.0-100.0); PO2 FiO2 Ratio Arterial Blood 2.11 %; Total Hemoglobin 20.7 g/dL (12.0-18.0); pH ABG 7.309 (7.350-7.450)
[2021-01-17 04:18] LABS: Device NON-INVASIVE VENT; Modified Allen's Test Pass; Non-Invasive Vent Rate 22 /MIN; PCO2 ABG 68.6 mmHg (35.0-45.0); Site Drawn RIGHT RADIAL
[2021-01-17 04:19] LABS: Non-Invasive Expiratory Pressure 8 CMH2O; Non-Invasive Inspiratory Pressure 20 CMH2O
[2021-01-17] MEDS: LEVOTHYROXINE SODIUM 100 MCG TABLET PO (05:59)
[2021-01-17] MEDS: LEVOTHYROXINE SODIUM 75 MCG TABLET PO (05:59)
[2021-01-17 06:02] LABS: Basophils Percent Auto 0.2 % (0.2-1.2); Hemoglobin 19.3 g/dL (12.0-15.0); Immature Granulocyte Absolute 0.06 K/mm3 (0.00-0.031); Immature Granulocyte Percent A 0.6 % (0-0.5); Lymphocytes Absolute Auto 0.43 K/mm3 (0.9-3.2); Mean Corpuscular HGB Conc 32.2 g/dl (32-36); Mean Corpuscular Hemoglobin 32.1 pg (26-34); Mean Corpuscular Volume 99.8 fl (80-100); Mean Platelet Volume 10.6 fl (7.4-10.4); Monocytes Absolute Auto 0.5 K/mm3 (0.1-0.6); Monocytes Percent Auto 4.8 % (2.6-8.5); Neutrophils Absolute Auto 9.8 K/mm3 (1.3-6.7); Neutrophils Percent Auto 90.4 % (45.5-73.1); Platelet Count Result 173 k/mm3 (150-375); Red Blood Count 6.01 M/mm3 (4.2-5.4); Red Cell Distribution Width 20.4 % (11.5-14.5); White Blood Count 10.8 K/mm3 (4.5-10.0)
[2021-01-17 06:15] LABS: Alanine Aminotransferase 62 U/L (4-35); Albumin Level 3.6 g/dL (3.5-5.1); Alkaline Phosphatase 154 U/L (38-126); Anion Gap 7 mmol/L (8-16); Aspartate Amino Transferase 35 U/L (14-36); Bilirubin,Total 1.1 mg/dL (0.2-1.3); Blood Urea Nitrogen 39 mg/dL (7-17); Calcium 9.3 mg/dL (8.4-10.2); Carbon Dioxide 29 mmol/L (22-30); Chloride 99 mmol/L (98-107); Estimated CRCL calculation 94 ml/min; Estimated Glomerular Filt Rate > 60; Glucose 307 mg/dL (65-110); Magnesium 2.3 mg/dL (1.6-2.3); Phosphorus 4.3 mg/dL (2.5-4.5); Potassium 4.9 mmol/L (3.4-5.0); Sodium 135 mmol/L (137-145)
[2021-01-17 06:49] LABS: Hemoglobin A1C 7.8 % (<5.7)
[2021-01-17 09:04] LABS: Glucose Point of Care 341 mg/dl (65-105)
--- NOTE | 2021-01-17 09:40 | PM.IMPN ---
Progress Note: A&P Assessment and Plan (1) Acute respiratory failure with hypoxia and hypercapnia: Code(s): J96.01 - Acute respiratory failure with hypoxia; J96.02 - Acute respiratory failure with hypercapnia Status: Acute Assessment and Plan: Patient found at home lethargic with a pulse ox of 60% on room air. Blood gas here was 7.32/50/86 on noninvasive ventilation 05/18. Etiology unclear but suspect multifactorial with CHF, PNA, COPD, undiagnosed ANIBAL and /or COVID. ABG this morning was 7.30/59/68 on 30/01. Elevated D-dimer on admission Nasal cannula during daytime and BiPAP at night Chest x-ray reviewed persistent interstitial edema however looks improved compared to admission chest x-ray Continue IV diuresis and IV antibiotics as ordered CTA negative for PE but did notes patchy bilateral pulmonary infiltrates most prominently dependent bilateral lower lobes ABG on 01/17/2021 with 7.30/68/116/33 COVID test negative Elevated BNP Continue diuresis IV (2) CHF (congestive heart failure): Code(s): I50.9 - Heart failure, unspecified Status: Acute Assessment and Plan: chest x-ray finding showing bilateral lower lobe airspace disease and cardiomegaly. Her BNP was 4970. She has pedal edema. This could be right heart failure from her chronic hypoxia. She may have LV dysfunction as well. Echocardiogram ordered is pending. Continue Lasix IV. Monitor urine output. Flat troponin trend (3) Elevated troponin: Code(s): R77.8 - Other specified abnormalities of plasma proteins Status: Acute Assessment and Plan: Patient with mildly elevated troponins but flat overall. Suspect this is related to the respiratory failure as a nonischemic myocardial injury. (4) Pneumonia: Code(s): J18.9 - Pneumonia, unspecified organism Status: Acute Assessment and Plan: CXR showing bilateral lower lobe airspace disease. COVID testing obtained. Blood cultures collected. Will check sputum culture. Continue Rocephin azithromycin. Add nebulizer treatments. (5) Person under investigation for COVID-19: Code(s): Z20.822 - Contact with and (suspected) exposure to COVID-19 Status: Acute Assessment and Plan: COVID testing negative (6) Tobacco abuse disorder: Code(s): Z72.0 - Tobacco use Status: Acute Assessment and Plan: Patient smokes 2 packs a day. She was educated about the benefits of smoking cessation. Nicotine patch has been provided. (7) Type 2 diabetes mellitus with hyperglycemia, without long-term current use of insulin: Code(s): E11.65 - Type 2 diabetes mellitus with hyperglycemia Status: Acute Assessment and Plan: A1c 7.9 in November. Oral medications on hold. Continue sliding scale protocol. Hypoglycemia protocol available as needed. Add Lantus at night. adjust Insulin A1c of 7.8 (8) COPD (chronic obstructive pulmonary disease): Code(s): J44.9 - Chronic obstructive pulmonary disease, unspecified Status: Acute Assessment and Plan: COPD with exacerbation. Will continue her Trelegy. Add nebulizer treatments. Continue the Solu-Medrol. (9) Polycythemia secondary to hypoxia: Code(s): D75.1 - Secondary polycythemia Status: Acute Assessment and Plan: hemoglobin 19 on admission. This is a known finding for this patient. Most likely this was related to chronic hypoxia but Erythropoeitin level elevated in August. Check DONAVON 2 mutation which is pending (10) DVT prophylaxis: Code(s): Z29.9 - Encounter for prophylactic measures, unspecified Status: Acute Assessment and Plan: Lovenox Subjective Date/time seen: 01/17/21 09:40 Interval history: 65yo female with DM, COPD and tobacco abuse here for acute respiratory failure. He felt a little better today compared to yesterday. Still has cough with expectoration. Leg swelling
[2021-01-17] MEDS: INSULIN ASPART (*BKC) 100 UNITS/ML SUB-Q ×3 (09:49→17:04)
[2021-01-17] MEDS: ASPIRIN 81 MG ENTERIC TABLET PO (09:51)
[2021-01-17] MEDS: CHOLECALCIFEROL 1,000 UNITS TABLET 5000 UNITS PO (09:51)
[2021-01-17] MEDS: SIMVASTATIN 20 MG TABLET PO (09:52)
[2021-01-17] MEDS: NICOTINE (*PBKC) 21 MG PATCH 1 PATCH TRANSDERM (09:52)
[2021-01-17] MEDS: ENOXAPARIN 40 MG/0.4 ML SYRINGE SUB-Q (09:53)
[2021-01-17] MEDS: FUROSEMIDE INJ 40 MG/4 ML VIAL IV PUSH ×2 (09:53→17:06)
[2021-01-17] MEDS: methylPREDNISolone SOD SUCC 125 MG VIAL 60 MG IV PUSH ×3 (09:53→17:06)
[2021-01-17] MEDS: INSULIN ASPART (*BKC) 100 UNITS/ML 10 UNITS SUB-Q ×2 (12:24→17:04)
[2021-01-17] MEDS: FLUTICASONE/UMECLIDIN/VILANTER 100-62.5-25 MCG ELLIPTA 1 PUFF INHALATION (12:30)
[2021-01-17 13:10] LABS: Glucose Point of Care 333 mg/dl (65-105)
--- NOTE | 2021-01-17 13:20 | PC.NURSE ---
This patient, Sarah Rodriguez, was received from IMU on 01/17/21 at 1320. Patient/family oriented to unit policies and routines. Received report from RAY Barrera.
[2021-01-17 16:53] LABS: Glucose Point of Care 286 mg/dl (65-105)
[2021-01-17 20:04] LABS: Glucose Point of Care 342 mg/dl (65-105)
[2021-01-17] MEDS: INSULIN GLARGINE (*BKC) 100 UNITS/ML 24 UNITS SUB-Q (21:01)
[2021-01-17] MEDS: INSULIN ASPART (*BKC) 100 UNITS/ML 6 UNITS SUB-Q (21:03)
[2021-01-17 23:34] LABS: Glucose Point of Care 266 mg/dl (65-105)
[2021-01-18] VITALS (21 sets, daily range): BP systolic 100–144; BP diastolic 59–80; PULSE 53–74; RESP 18–27; TEMP 35.8–36.7; O2SAT 92–98
[2021-01-18] MEDS: methylPREDNISolone SOD SUCC 125 MG VIAL 60 MG IV PUSH ×4 (00:17→17:28)
[2021-01-18] MEDS: LEVOTHYROXINE SODIUM 100 MCG TABLET PO (05:34)
[2021-01-18] MEDS: LEVOTHYROXINE SODIUM 75 MCG TABLET PO (05:34)
[2021-01-18 07:06] LABS: Basophils Percent Auto 0.3 % (0.2-1.2); Hematocrit 63.6 % (37.0-47.0); Hemoglobin 19.7 g/dL (12.0-15.0); Immature Granulocyte Absolute 0.09 K/mm3 (0.00-0.031); Immature Granulocyte Percent A 0.8 % (0-0.5); Lymphocytes Percent Auto 5.2 % (18.3-44.2); Mean Corpuscular Hemoglobin 31.9 pg (26-34); Mean Corpuscular Volume 103.1 fl (80-100); Mean Platelet Volume 10.3 fl (7.4-10.4); Monocytes Absolute Auto 0.5 K/mm3 (0.1-0.6); Monocytes Percent Auto 4.6 % (2.6-8.5); Neutrophils Absolute Auto 10.3 K/mm3 (1.3-6.7); Neutrophils Percent Auto 89.1 % (45.5-73.1); Platelet Count Result 167 k/mm3 (150-375); Red Blood Count 6.17 M/mm3 (4.2-5.4); Red Cell Distribution Width 20.8 % (11.5-14.5); White Blood Count 11.5 K/mm3 (4.5-10.0)
[2021-01-18 07:26] LABS: Blood Urea Nitrogen 37 mg/dL (7-17); Calcium 9.8 mg/dL (8.4-10.2); Carbon Dioxide > 40 mmol/L (22-30); Chloride 88 mmol/L (98-107); Estimated CRCL calculation 94 ml/min; Estimated Glomerular Filt Rate > 60; Glucose 237 mg/dL (65-110); Potassium 4.3 mmol/L (3.4-5.0); Sodium 137 mmol/L (137-145)
[2021-01-18 07:45] LABS: Glucose Point of Care 249 mg/dl (65-105)
[2021-01-18] MEDS: INSULIN ASPART (*BKC) 100 UNITS/ML SUB-Q (08:18)
[2021-01-18] MEDS: INSULIN ASPART (*BKC) 100 UNITS/ML 10 UNITS SUB-Q ×3 (08:18→18:15)
[2021-01-18] MEDS: CHOLECALCIFEROL 1,000 UNITS TABLET 5000 UNITS PO (08:21)
[2021-01-18] MEDS: ASPIRIN 81 MG ENTERIC TABLET PO (08:21)
[2021-01-18] MEDS: NICOTINE (*PBKC) 21 MG PATCH 1 PATCH TRANSDERM (08:22)
[2021-01-18] MEDS: FUROSEMIDE INJ 40 MG/4 ML VIAL IV PUSH ×2 (08:22→17:28)
[2021-01-18] MEDS: SIMVASTATIN 20 MG TABLET PO (08:22)
[2021-01-18] MEDS: ENOXAPARIN 40 MG/0.4 ML SYRINGE SUB-Q (08:22)
[2021-01-18 10:41] LABS: Alveolar/Arterial O2 Gradient 395.1 mmHg; Base Excess ABG 10.7 mEq/l (+/-2.0); Fractional Inspired Oxygen 80 %; HCO3 ABG 41.4 mEq/l (22.0-26.0); Oxygen Content ABG 28.5 %vol (16.0-22.0); Oxygen Saturation ABG 96.9 % (95.0-100.0); PO2 ABG 97.4 mmHg (80.0-100.0); PO2 FiO2 Ratio Arterial Blood 1.22 %; Total Hemoglobin 21.1 g/dL (12.0-18.0); pH ABG 7.364 (7.350-7.450)
[2021-01-18 10:42] LABS: Device HIGH FLOW NASAL CANN; Modified Allen's Test Pass; PCO2 ABG 74.2 mmHg (35.0-45.0); Site Drawn RIGHT RADIAL
--- NOTE | 2021-01-18 10:57 | PCRCNOTE ---
Window of time for administration has passed. See next scheduled administration.
[2021-01-18] MEDS: ALBUTEROL SULFATE NEB 2.5 MG/0.5 ML INH INHALATION ×2 (11:31→21:10)
[2021-01-18] MEDS: IPRATROPIUM BR 0.02% INH SOLN 0.5 MG/2.5 ML VIAL INHALATION ×2 (11:31→21:10)
[2021-01-18 11:54] LABS: Glucose Point of Care 264 mg/dl (65-105)
[2021-01-18] MEDS: FLUTICASONE/UMECLIDIN/VILANTER 100-62.5-25 MCG ELLIPTA 1 PUFF INHALATION (13:29)
[2021-01-18 16:09] LABS: Alveolar/Arterial O2 Gradient 169.5 mmHg; Base Excess ABG 13.2 mEq/l (+/-2.0); Fractional Inspired Oxygen 45 %; HCO3 ABG 43.5 mEq/l (22.0-26.0); Oxygen Content ABG 27.6 %vol (16.0-22.0); Oxygen Saturation ABG 93.5 % (95.0-100.0); Oxyhemoglobin 93.4 % THb (90.0-100.0); PO2 FiO2 Ratio Arterial Blood 1.56 %; Total Hemoglobin 21.1 g/dL (12.0-18.0); pH ABG 7.402 (7.350-7.450)
[2021-01-18 16:11] LABS: PCO2 ABG 71.5 mmHg (35.0-45.0)
[2021-01-18 16:12] LABS: Device NON-INVASIVE VENT; Site Drawn LEFT BRACHIAL
[2021-01-18 16:13] LABS: Non-Invasive Expiratory Pressure 8 CMH2O; Non-Invasive Inspiratory Pressure 20 CMH2O; Non-Invasive Vent Rate 22 /MIN
[2021-01-18 17:03] LABS: Glucose Point of Care 177 mg/dl (65-105)
--- NOTE | 2021-01-18 17:24 | PM.IMPN ---
Progress Note: A&P Assessment and Plan (1) Acute respiratory failure with hypoxia and hypercapnia: Code(s): J96.01 - Acute respiratory failure with hypoxia; J96.02 - Acute respiratory failure with hypercapnia Status: Acute Assessment and Plan: - likely a COPD exacerbation, patient smokes 2 packs per day and has significant wheezing on exam - patient has been on 60 mg q.6 hours for 3 days of Solu-Medrol, will start weaning, down to 40mg q.6 today - patient has been undergoing aggressive diuresis may be developing contraction alkalosis, echocardiogram showed normal systolic function and abnormal diastolic dysfunction. I believe her symptoms are more likely COPD exacerbation as opposed to CHF. chest x-ray did show some mild interstitial edema, she has been diuresing pretty aggressively with net -3 L urine output. at this time I will stop the scheduled Lasix and re-evaluate for p.r.n. Lasix - pH has normalized however her hypercapnia is worsening likely secondary to receiving too much oxygen as she was 97% oxygen saturation. hypercapnia improved slightly when FiO2 was decreased from 55% to 45%. - continue DuoNebs scheduled for now - antibiotics: Rocephin/azithromycin, afebrile, normal white blood cell count, no sputum production will re-evaluate tomorrow but may discontinue altogether as she has no clinical signs of pneumonia. initial chest x-ray did have signs of mid and lower lung opacities concerning for edema versus pneumonia. (2) Bradycardia: Code(s): R00.1 - Bradycardia, unspecified Status: Acute Assessment and Plan: asymptomatic bradycardia, heart rate in the 50s. No beta-blockers or rate control medications on chart review (3) Hypothyroidism, acquired, autoimmune: Code(s): E06.3 - Autoimmune thyroiditis Status: Acute Assessment and Plan: continue home thyroid medication (4) Obesity due to excess calories: Code(s): E66.09 - Other obesity due to excess calories Status: Acute Assessment and Plan: patient will need a weight loss plan in the future as it may be contributing to her obesity hypoventilation (5) Obesity hypoventilation syndrome: Code(s): E66.2 - Morbid (severe) obesity with alveolar hypoventilation Status: Acute Assessment and Plan: patient likely has obesity hypoventilation based on her body habitus and persistent hypercapnia (6) Insulin dependent diabetes mellitus: Status: Acute Assessment and Plan: continue long-acting and short-acting insulin, sliding scale insulin, Accu-Cheks a.c. HS, hypoglycemia protocol Additional Plan Diet: Diabetic heart healthy DVT prophylaxis: Lovenox GI prophylaxis: starting Pepcid b.i.d. while on high-dose steroid Code status: full code Disposition: pending clinical course Time Spent With Patient Time with patient: Greater than 35 minutes Subjective Date/time seen: 01/18/21 17:24 Patient examined. She is continuing to be diuresed, net -3 L urine output. She is not confused today however was persistently hypercapnic despite pH normalizing. she was placed on BiPAP for 4 hours to treat hypercapnia. She otherwise has no new complaints. She was not lethargic on my evaluation today. Patient denies fever, chills, nausea, vomiting, diarrhea. she does endorse dyspnea. Review of Systems Review of Systems: All systems reviewed & are unremarkable except as noted in HPI and below Exam Narrative: - GENERAL: pleasant obese female in respiratory distress tachypneic on BiPAP. - EYES: EOMI. Anicteric. - HENT: Moist mucous membranes. - LUNGS: Diminished lung sounds throughout, inspiratory and expiratory wheezing present. - CARDIOVASCULAR: Regular rate and rhythm. Difficult to auscultate. - ABDOMEN: Soft, non-tender and non-distended. No palpable masses. - EXTREMITIES: No edema. Peripheral pulses 2+. Non-tender. - NEUROLOGIC: No focal neurological deficits. CN II-XII grossly intac
[2021-01-18 20:18] LABS: Glucose Point of Care 251 mg/dl (65-105)
[2021-01-18] MEDS: FAMOTIDINE 20 MG TABLET PO (21:55)
[2021-01-18] MEDS: INSULIN GLARGINE (*BKC) 100 UNITS/ML 24 UNITS SUB-Q (22:51)
[2021-01-18] MEDS: methylPREDNISolone SOD SUCC 40 MG VIAL IV PUSH (23:28)
[2021-01-19] VITALS (13 sets, daily range): BP systolic 106–157; BP diastolic 52–88; PULSE 52–72; RESP 20–22; TEMP 36.1–37.1; O2SAT 91–96
[2021-01-19] MEDS: ALBUTEROL SULFATE NEB 2.5 MG/0.5 ML INH INHALATION ×2 (04:07→19:48)
[2021-01-19] MEDS: IPRATROPIUM BR 0.02% INH SOLN 0.5 MG/2.5 ML VIAL INHALATION ×2 (04:07→19:48)
[2021-01-19] MEDS: LEVOTHYROXINE SODIUM 100 MCG TABLET PO (05:31)
[2021-01-19] MEDS: LEVOTHYROXINE SODIUM 75 MCG TABLET PO (05:31)
[2021-01-19] MEDS: methylPREDNISolone SOD SUCC 40 MG VIAL IV PUSH ×2 (05:31→18:03)
[2021-01-19 06:45] LABS: Hematocrit 62.7 % (37.0-47.0); Hemoglobin 19.5 g/dL (12.0-15.0); Mean Corpuscular HGB Conc 31.1 g/dl (32-36); Mean Corpuscular Hemoglobin 32.2 pg (26-34); Mean Corpuscular Volume 103.5 fl (80-100); Mean Platelet Volume 10.9 fl (7.4-10.4); Platelet Count Result 170 k/mm3 (150-375); Red Blood Count 6.06 M/mm3 (4.2-5.4); White Blood Count 13.7 K/mm3 (4.5-10.0)
[2021-01-19 07:08] LABS: Blood Urea Nitrogen 31 mg/dL (7-17); Calcium 9.7 mg/dL (8.4-10.2); Carbon Dioxide > 40 mmol/L (22-30); Chloride 89 mmol/L (98-107); Estimated CRCL calculation 108 ml/min; Estimated Glomerular Filt Rate > 60; Glucose 153 mg/dL (65-110); Magnesium 2.2 mg/dL (1.6-2.3); Potassium 3.8 mmol/L (3.4-5.0); Sodium 140 mmol/L (137-145)
[2021-01-19] MEDS: NICOTINE (*PBKC) 21 MG PATCH 1 PATCH TRANSDERM (08:22)
[2021-01-19] MEDS: SIMVASTATIN 20 MG TABLET PO (08:23)
[2021-01-19] MEDS: ASPIRIN 81 MG ENTERIC TABLET PO (08:23)
[2021-01-19] MEDS: ENOXAPARIN 40 MG/0.4 ML SYRINGE SUB-Q (08:23)
[2021-01-19] MEDS: FAMOTIDINE 20 MG TABLET PO ×2 (08:23→20:37)
[2021-01-19] MEDS: CHOLECALCIFEROL 1,000 UNITS TABLET 5000 UNITS PO (08:23)
[2021-01-19 08:29] LABS: Glucose Point of Care 186 mg/dl (65-105)
[2021-01-19] MEDS: INSULIN ASPART (*BKC) 100 UNITS/ML 10 UNITS SUB-Q (08:48)
[2021-01-19 09:07] LABS: Base Excess ABG 16.5 mEq/l (+/-2.0); Fractional Inspired Oxygen 80 %; HCO3 ABG 47.8 mEq/l (22.0-26.0); Oxygen Content ABG 28.7 %vol (16.0-22.0); Oxygen Saturation ABG 96.8 % (95.0-100.0); Oxyhemoglobin 95.8 % THb (90.0-100.0); PO2 ABG 92.4 mmHg (80.0-100.0); PO2 FiO2 Ratio Arterial Blood 1.15 %; Total Hemoglobin 21.3 g/dL (12.0-18.0); pH ABG 7.415 (7.350-7.450)
[2021-01-19 09:08] LABS: PCO2 ABG 76.2 mmHg (35.0-45.0)
[2021-01-19 09:09] LABS: Device HIGH FLOW NASAL CANN; Modified Allen's Test Pass; Site Drawn RIGHT RADIAL
--- NOTE | 2021-01-19 10:41 | PM.IMPN ---
Progress Note: A&P Assessment and Plan (1) Confusion: Code(s): R41.0 - Disorientation, unspecified Status: Acute Assessment and Plan: Patient confused today. This has progressively worsened over the weekend. Etiology unclear. Will check CT of the brain. Adjust BiPAP to try to improve her hypercapnia. HIV testing to exclude atypical infectious process involving the ELECTRIC BLANKET WIRER and her lung. Check B12 and folate. Stop antibiotics after today and continue monitor closely. Consider infectious process this not being covered such as Pseudomonas. Current cultures are no growth today. Check swallow study. Wean steroids CT brain okay. Doppler negative for DVT. Adjust BiPAP. Check ABG in the morning (2) Acute respiratory failure with hypoxia and hypercapnia: Code(s): J96.01 - Acute respiratory failure with hypoxia; J96.02 - Acute respiratory failure with hypercapnia Status: Acute Assessment and Plan: Patient brought in by EMS for evaluation for hypoxia. EMS reports they found patient at home lethargic with SpO2 of 60% on room air. She was placed on BIPAP by EMS and was given neb tx and Solu Medrol. CXR showing CMG and bilateral LL airspace disease. ABG 7.32/50/86 on BiPAP. COVID swab negative. Likely multifactorial from COPD exacerbation, CHF exacerbation and untreated ANIBAL with possible Obeisty hypoventilation syndrome. CTA negative for PE but did show patchy bilateral pulmonary infiltrates most prominent in the dependent bilateral lower lobes. She continues to smoke 2 packs per day and had significant wheezing on exam. Started on Solu-Medrol 60 mg q.6 hours for 3 days then decreased to 40mg q.6. Remains on neb treatments. Was receiving Lasix IV with good UOP. BNP 4970 and Echo showing EF 60-65% and diastolic dysfunction and mild pulmonary HTN. She had good UOP with the Lasix and Lasix stopped yesterday due to developing contraction alkalosis. Edema better. She also has been on Rocephin and Azithromycin (started 01/15) for possible PNA but felt less likely. Still with cough but normal WBC and no fevers. Will stop abx after today after 5 days. Check doppler of the bilateral LE given the +Homans. ABG noted today. Will adjust the BiPAP setting slightly. CXR today was reviewed showing CMG with pulmonary vascular congestion and extensive pulmonary interstitial changes with broad differential. O2 requirement better and toerlating the BiPAP. Continue to wean down O2 as toerlated. (3) COPD (chronic obstructive pulmonary disease): Code(s): J44.9 - Chronic obstructive pulmonary disease, unspecified Status: Acute Assessment and Plan: As above. Will add Symbicort (4) CHF (congestive heart failure): Code(s): I50.9 - Heart failure, unspecified Status: Acute Assessment and Plan: Chest x-ray showed bilateral lower lobe airspace disease with a BNP of 4970. Patient with acute diastolic CHF treated with IV Lasix. She had excellent urine output with Lasix. Lasix has been stopped due to contraction alkalosis. Diamox x1. (5) Elevated troponin: Code(s): R77.8 - Other specified abnormalities of plasma proteins Status: Acute Assessment and Plan: Troponin elevated to 0.045 but in a flat pattern. Suspected elevated troponins related to her acute respiratory failure and CHF. [place] this was nonischemic myocardial injury. (6) Polycythemia secondary to hypoxia: Code(s): D75.1 - Secondary polycythemia Status: Acute Assessment and Plan: Patient has elevated hemoglobin in the 18-21 range on chart review. Erythropoietin level was elevated but felt related to her ongoing hypoxia. Hemoglobin essentially unchanged since admission. DONAVON testing also has been performed. Continue monitor. (7) Bradycardia: Code(s): R00.1 - Bradycardia, unspecified Status: Acute Assessment and Plan: Patient with asymptomatic bradycardia with heart r
--- NOTE | 2021-01-19 12:14 | PCOTNOTE ---
12:05 - Attempted to see patient at this time for skilled OT session. Per RN, patient taken for CT at this time. Lunch tray also arrived and RN reports attempting a second time after patient eats. Will attempt again this date if possible.
[2021-01-19] MEDS: acetaZOLAMIDE SODIUM FOR INJ 500 MG VIAL 250 MG IV PUSH (12:33)
[2021-01-19] MEDS: INSULIN ASPART (*BKC) 100 UNITS/ML 6 UNITS SUB-Q ×2 (12:34→18:02)
[2021-01-19 12:50] LABS: Glucose Point of Care 175 mg/dl (65-105)
--- NOTE | 2021-01-19 14:57 | PCSTNOTE ---
Please refer to the Modified Barium Swallow Evaluation in the EMR.
[2021-01-19 17:39] LABS: Glucose Point of Care 150 mg/dl (65-105)
[2021-01-19 20:59] LABS: Glucose Point of Care 119 mg/dl (65-105)
[2021-01-19] MEDS: INSULIN GLARGINE (*BKC) 100 UNITS/ML 20 UNITS SUB-Q (21:55)
[2021-01-20] VITALS (20 sets, daily range): BP systolic 126–136; BP diastolic 66–88; PULSE 50–66; RESP 18–23; TEMP 36.6–37.1; O2SAT 91–96
[2021-01-20] MEDS: ALBUTEROL SULFATE NEB 2.5 MG/0.5 ML INH INHALATION ×4 (01:36→21:50)
[2021-01-20] MEDS: IPRATROPIUM BR 0.02% INH SOLN 0.5 MG/2.5 ML VIAL INHALATION ×4 (01:36→21:51)
[2021-01-20 03:51] LABS: Glucose Point of Care 174 mg/dl (65-105)
[2021-01-20 05:09] LABS: Alveolar/Arterial O2 Gradient 182.2 mmHg; Base Excess ABG 12.2 mEq/l (+/-2.0); Fractional Inspired Oxygen 45 %; HCO3 ABG 41.6 mEq/l (22.0-26.0); Oxygen Content ABG 26.7 %vol (16.0-22.0); Oxygen Saturation ABG 91.6 % (95.0-100.0); Oxyhemoglobin 90.7 % THb (90.0-100.0); PO2 ABG 62.9 mmHg (80.0-100.0); pH ABG 7.413 (7.350-7.450)
[2021-01-20 05:11] LABS: Device BIPAP; Modified Allen's Test Pass; PCO2 ABG 66.6 mmHg (35.0-45.0); Site Drawn RIGHT RADIAL
[2021-01-20 05:12] LABS: Expiratory Pressure 6 cmH2O; Inspiratory Pressure 20 cmH2O
[2021-01-20] MEDS: LEVOTHYROXINE SODIUM 75 MCG TABLET PO (05:32)
[2021-01-20] MEDS: LEVOTHYROXINE SODIUM 100 MCG TABLET PO (05:32)
[2021-01-20] MEDS: methylPREDNISolone SOD SUCC 40 MG VIAL IV PUSH (05:53)
[2021-01-20 06:10] LABS: Alanine Aminotransferase 51 U/L (4-35); Alkaline Phosphatase 116 U/L (38-126); Aspartate Amino Transferase 27 U/L (14-36); Bilirubin,Total 1.2 mg/dL (0.2-1.3); Blood Urea Nitrogen 23 mg/dL (7-17); CRP 2.4 mg/dL (<1.0); Calcium 9.7 mg/dL (8.4-10.2); Carbon Dioxide > 40 mmol/L (22-30); Chloride 94 mmol/L (98-107); Estimated CRCL calculation 94 ml/min; Estimated Glomerular Filt Rate > 60; Glucose 144 mg/dL (65-110); Magnesium 2.2 mg/dL (1.6-2.3); Phosphorus 4.5 mg/dL (2.5-4.5); Potassium 3.5 mmol/L (3.4-5.0); Sodium 136 mmol/L (137-145)
[2021-01-20 06:44] LABS: HIV 1/2 Ab P24 Ag Result Negative (Negative)
[2021-01-20 06:53] LABS: Basophils Percent Auto 0.3 % (0.2-1.2); Eosinophils Percent Auto 0.1 % (0-4.4); Hematocrit 60.3 % (37.0-47.0); Hemoglobin 19.5 g/dL (12.0-15.0); Immature Granulocyte Absolute 0.04 K/mm3 (0.00-0.031); Immature Granulocyte Percent A 0.4 % (0-0.5); Lymphocytes Absolute Auto 1.13 K/mm3 (0.9-3.2); Lymphocytes Percent Auto 10.1 % (18.3-44.2); Mean Corpuscular HGB Conc 32.3 g/dl (32-36); Mean Corpuscular Hemoglobin 32.1 pg (26-34); Mean Corpuscular Volume 99.3 fl (80-100); Mean Platelet Volume 10.8 fl (7.4-10.4); Monocytes Absolute Auto 0.8 K/mm3 (0.1-0.6); Monocytes Percent Auto 7.2 % (2.6-8.5); Neutrophils Absolute Auto 9.1 K/mm3 (1.3-6.7); Neutrophils Percent Auto 81.9 % (45.5-73.1); Platelet Count Result 166 k/mm3 (150-375); Red Blood Count 6.07 M/mm3 (4.2-5.4); Red Cell Distribution Width 19.3 % (11.5-14.5); White Blood Count 11.2 K/mm3 (4.5-10.0)
[2021-01-20 07:09] LABS: Folic Acid 6.4 ng/mL (2.76->20)
[2021-01-20 09:10] LABS: Glucose Point of Care 146 mg/dl (65-105)
[2021-01-20] MEDS: CHOLECALCIFEROL 1,000 UNITS TABLET 5000 UNITS PO (09:32)
[2021-01-20] MEDS: ENOXAPARIN 40 MG/0.4 ML SYRINGE SUB-Q (09:32)
[2021-01-20] MEDS: ASPIRIN 81 MG ENTERIC TABLET PO (09:32)
[2021-01-20] MEDS: FAMOTIDINE 20 MG TABLET PO ×2 (09:32→20:31)
[2021-01-20] MEDS: NICOTINE (*PBKC) 21 MG PATCH 1 PATCH TRANSDERM (09:32)
[2021-01-20] MEDS: SIMVASTATIN 20 MG TABLET PO (09:32)
[2021-01-20] MEDS: INSULIN ASPART (*BKC) 100 UNITS/ML 6 UNITS SUB-Q ×3 (09:39→17:17)
[2021-01-20] MEDS: FLUTICASONE/UMECLIDIN/VILANTER 100-62.5-25 MCG ELLIPTA 1 PUFF INHALATION (09:45)
[2021-01-20 11:38] LABS: Glucose Point of Care 189 mg/dl (65-105)
--- NOTE | 2021-01-20 14:56 | PM.IMPN ---
Progress Note: A&P Assessment and Plan (1) Confusion: Code(s): R41.0 - Disorientation, unspecified Status: Acute Assessment and Plan: Patient confused yesterday. This has progressively worsened over the weekend. Etiology unclear. CT of the brain okay. We adjusted BiPAP which improved her hypercapnia. HIV negative; B12/folate normal. Mental status better. Follow. (2) Acute respiratory failure with hypoxia and hypercapnia: Code(s): J96.01 - Acute respiratory failure with hypoxia; J96.02 - Acute respiratory failure with hypercapnia Status: Acute Assessment and Plan: Patient brought in by EMS for evaluation for hypoxia. EMS reports they found patient at home lethargic with SpO2 of 60% on room air. She was placed on BIPAP by EMS and was given neb tx and Solu Medrol. CXR showing CMG and bilateral LL airspace disease. ABG 7.32/50/86 on BiPAP. COVID swab negative. Likely multifactorial from COPD exacerbation, CHF exacerbation and untreated ANIBAL with possible Obeisty hypoventilation syndrome. CTA negative for PE but did show patchy bilateral pulmonary infiltrates most prominent in the dependent bilateral lower lobes. She continues to smoke 2 packs per day and had significant wheezing on exam. Started on Solu-Medrol 60 mg q.6 hours for 3 days then decreased. Remains on neb treatments. Was receiving Lasix IV with good UOP. BNP 4970 and Echo showing EF 60-65% and diastolic dysfunction and mild pulmonary HTN. She had good UOP with the Lasix and Lasix stopped 01/18 due to developing contraction alkalosis. Edema better. She also has been on Rocephin and Azithromycin (started 01/15) for possible PNA but felt less likely. Doppler of the bilateral LE negative for DVT. We adjusted the BiPAP setting slightly last ngiht and ABG 7.41/67/63. Continue to wean down O2 as tolerated. Diamox x1. Stop abx. Change to Prednisone. (3) COPD (chronic obstructive pulmonary disease): Code(s): J44.9 - Chronic obstructive pulmonary disease, unspecified Status: Acute Assessment and Plan: As above. Continue Trelegy (4) CHF (congestive heart failure): Code(s): I50.9 - Heart failure, unspecified Status: Acute Assessment and Plan: Chest x-ray showed bilateral lower lobe airspace disease with a BNP of 4970. Patient with acute diastolic CHF treated with IV Lasix. She had excellent urine output with Lasix. Lasix has been stopped due to contraction alkalosis. Serum bicarb stil >40. Repeat Diamox x1. (5) Elevated troponin: Code(s): R77.8 - Other specified abnormalities of plasma proteins Status: Acute Assessment and Plan: Troponin elevated to 0.045 but in a flat pattern. Suspected elevated troponins related to her acute respiratory failure and CHF. [place] this was nonischemic myocardial injury. (6) Polycythemia secondary to hypoxia: Code(s): D75.1 - Secondary polycythemia Status: Acute Assessment and Plan: Patient has chronically elevated hemoglobin in the 18-21 range on chart review. Erythropoietin level was elevated but felt related to her ongoing hypoxia. Hemoglobin essentially unchanged since admission. DONAVON testing pending. Continue to monitor. (7) Bradycardia: Code(s): R00.1 - Bradycardia, unspecified Status: Acute Assessment and Plan: Patient with asymptomatic bradycardia with heart rate in the 50s. No beta-blockers or rate control medications on chart review. Probably related to her untreated ANIBAL. Stop tele. (8) Hypothyroidism, acquired, autoimmune: Code(s): E06.3 - Autoimmune thyroiditis Status: Acute Assessment and Plan: TSH 1.0 on admission. Continue home thyroid medication (9) Insulin dependent diabetes mellitus: Status: Acute Assessment and Plan: A1c 7.8. The patient's blood glucose was reviewed on 01/20 Glucose was much higher due to steroids but reasonably well controll
[2021-01-20 17:01] LABS: Glucose Point of Care 252 mg/dl (65-105)
[2021-01-20] MEDS: acetaZOLAMIDE SODIUM FOR INJ 500 MG VIAL 250 MG IV PUSH (17:15)
[2021-01-20] MEDS: INSULIN ASPART (*BKC) 100 UNITS/ML SUB-Q (17:17)
--- NOTE | 2021-01-20 20:23 | PM.CNPUL ---
Assessment and Plan Assessment and plan (1) Acute respiratory failure with hypoxia and hypercapnia: Code(s): J96.01 - Acute respiratory failure with hypoxia; J96.02 - Acute respiratory failure with hypercapnia Status: Acute Assessment and Plan: She has acute on chronic respiratory failure with hypoxia and hypercapnia: improved with BiPAP, and is a candidate for NPPV for home use. She needs O2, and evaluation shows 4 L/min at rest, 6 L/min with exertion. She has not been on O2 at home, probably needed it, and is now being started. Hypoxemia is the cause for her polycythemia. She has infiltrates which may represent pulmonary edema. Has had empiric azithromycin and ceftriaxone; does not appear to be infected. She ruled out for Sars-CoV 2. Stopping smoking is the best option, and she won't be able to smoke and breathe. Will have to make a choice. She is encouraged to remain off cigarettes, using this time in the hospital to get over the most difficult period of abstinence, the first 3 days. She is using nicotine replacement therapy with Nicoderm patch. Continue COPD treatment with inhaled therapy, steroids. She needs to follow up in the office 1-2 weeks after discharge. (2) COPD (chronic obstructive pulmonary disease): Code(s): J44.9 - Chronic obstructive pulmonary disease, unspecified Status: Acute Assessment and Plan: Long stnadin, severe. Will need adjustments in medicaitons after discharge. (3) Polycythemia secondary to hypoxia: Code(s): D75.1 - Secondary polycythemia Status: Acute Assessment and Plan: H/H high enough to cause complications. (4) CHF (congestive heart failure): Code(s): I50.9 - Heart failure, unspecified Status: Acute Assessment and Plan: diastolic CHF, elevated BNP History of Present Illness History of Present Illness Consult date: 01/21/21 Requesting physician: Nelson Ye MD Chief complaint: acute respiratory failure with hypercapnea,pneumon Narrative: Date of consult: Jan 21, 2021 NEW: Sarah Rodriguez is 65 years old, admitted Jan 15 with decreased LOC and acute on chronic respiratory failure, increased shortness of breath, lives with her 2 sons who called an ambulance. O2 saturation was 60% on room air. CTA was negative for PE, was treated w BIPAP, O2. She has longstanding COPD. She is not on oxygen at home, uses albuterol multiple times a day, reports of up to 15-20 times. Also states that she uses Advair. Her H/H is elevated hemoglobin is is between 17 and 20 grams/deciliter, hematocrit 53-63 % over the last 2 months. On admission she had hypercapnic hypoxemic respiratory failure, pH 7.279, pCO2 59.3, PO2 106.4 H CO3 is 27 and this is on BiPAP 20/8 and 70%. She qualifies for noninvasive positive pressure ventilation. The patient is smoking 2 packs a day. She is short of breath with little activity. She denies hemoptysis, she wheezes with illness or exertion. She was previously followed by Dr. Chance, now sees Dr Lissette Woods; DATA: * 01/19/21 MBS - Pharyngeal Phase: Trace laryngeal penetration with thin liquids and nectar thick liquids, mostly cleared with swallow No aspiration * 01/15/2021 CTA - no PE; Patchy bilateral pulmonary infiltrates, most prominent in the dependent bilateral lower lobes. * ABG pH 7.279, pCO2 59.3, PO2 106.4 H CO3 is 27 and this is on BiPAP 20/8 and 70%. Review of Systems Review of Systems: All systems reviewed & are unremarkable except as noted in HPI and below (HPI) [facility] Past Medical History Medical History Centrilobular emphysema Claudication of both lower extremities COPD (chronic obst
[2021-01-20] MEDS: INSULIN GLARGINE (*BKC) 100 UNITS/ML 20 UNITS SUB-Q (20:31)
[2021-01-20 20:53] LABS: Erythropoietin (EPO) 4.7 mIU/mL (2.6-18.5)
[2021-01-20 21:49] LABS: Glucose Point of Care 233 mg/dl (65-105)
[2021-01-21] VITALS (24 sets, daily range): BP systolic 115–142; BP diastolic 51–88; PULSE 51–100; RESP 18–27; TEMP 35.6–36.9; O2SAT 85–99
[2021-01-21] MEDS: IPRATROPIUM BR 0.02% INH SOLN 0.5 MG/2.5 ML VIAL INHALATION ×2 (02:55→10:22)
[2021-01-21] MEDS: ALBUTEROL SULFATE NEB 2.5 MG/0.5 ML INH INHALATION ×4 (02:55→22:02)
[2021-01-21] MEDS: LEVOTHYROXINE SODIUM 100 MCG TABLET PO (05:24)
[2021-01-21] MEDS: LEVOTHYROXINE SODIUM 75 MCG TABLET PO (05:24)
[2021-01-21 06:06] LABS: Basophils Percent Auto 0.2 % (0.2-1.2); Eosinophils Absolute Auto 0.1 K/mm3 (0-0.3); Eosinophils Percent Auto 0.6 % (0-4.4); Hematocrit 64.7 % (37.0-47.0); Hemoglobin 20.7 g/dL (12.0-15.0); Immature Granulocyte Absolute 0.06 K/mm3 (0.00-0.031); Immature Granulocyte Percent A 0.6 % (0-0.5); Lymphocytes Percent Auto 12.3 % (18.3-44.2); Mean Corpuscular Hemoglobin 31.9 pg (26-34); Mean Corpuscular Volume 99.8 fl (80-100); Mean Platelet Volume 10.6 fl (7.4-10.4); Monocytes Absolute Auto 0.7 K/mm3 (0.1-0.6); Neutrophils Absolute Auto 7.7 K/mm3 (1.3-6.7); Neutrophils Percent Auto 79.3 % (45.5-73.1); Platelet Count Result 143 k/mm3 (150-375); Red Blood Count 6.48 M/mm3 (4.2-5.4); Red Cell Distribution Width 19.9 % (11.5-14.5); White Blood Count 9.8 K/mm3 (4.5-10.0)
[2021-01-21 06:20] LABS: Anion Gap 4 mmol/L (8-16); Blood Urea Nitrogen 22 mg/dL (7-17); Calcium 9.6 mg/dL (8.4-10.2); Carbon Dioxide 35 mmol/L (22-30); Chloride 96 mmol/L (98-107); Estimated CRCL calculation 83 ml/min; Estimated Glomerular Filt Rate > 60; Glucose 127 mg/dL (65-110); Potassium 3.9 mmol/L (3.4-5.0); Sodium 135 mmol/L (137-145)
[2021-01-21] MEDS: ENOXAPARIN 40 MG/0.4 ML SYRINGE SUB-Q (09:09)
[2021-01-21] MEDS: CHOLECALCIFEROL 1,000 UNITS TABLET 5000 UNITS PO (09:10)
[2021-01-21] MEDS: predniSONE 20 MG TABLET 40 MG PO (09:10)
[2021-01-21] MEDS: ASPIRIN 81 MG ENTERIC TABLET PO (09:10)
[2021-01-21] MEDS: SIMVASTATIN 20 MG TABLET PO (09:10)
[2021-01-21] MEDS: FAMOTIDINE 20 MG TABLET PO ×2 (09:10→20:45)
[2021-01-21] MEDS: NICOTINE (*PBKC) 21 MG PATCH 1 PATCH TRANSDERM (09:11)
[2021-01-21] MEDS: INSULIN ASPART (*BKC) 100 UNITS/ML 6 UNITS SUB-Q ×3 (09:15→16:39)
[2021-01-21] MEDS: FLUTICASONE/UMECLIDIN/VILANTER 100-62.5-25 MCG ELLIPTA 1 PUFF INHALATION (10:23)
--- NOTE | 2021-01-21 10:50 | PM.IMPN ---
Progress Note: A&P Assessment and Plan (1) Confusion: Code(s): R41.0 - Disorientation, unspecified Status: Acute Assessment and Plan: Patient confused that was progressively worsened over the weekend. Etiology unclear. CT of the brain okay. We adjusted BiPAP which improved her hypercapnia. HIV negative; B12/folate normal. Mental status much better. Contineu PT/OT. Follow. (2) Acute respiratory failure with hypoxia and hypercapnia: Code(s): J96.01 - Acute respiratory failure with hypoxia; J96.02 - Acute respiratory failure with hypercapnia Status: Acute Assessment and Plan: Patient brought in by EMS for evaluation for hypoxia. EMS reports they found patient at home lethargic with SpO2 of 60% on room air. She was placed on BIPAP by EMS and was given neb tx and Solu Medrol. CXR showing CMG and bilateral LL airspace disease. ABG 7.32/50/86 on BiPAP. COVID swab negative. Likely multifactorial from COPD exacerbation, CHF exacerbation and untreated ANIBAL with possible Obeisty hypoventilation syndrome. CTA negative for PE but did show patchy bilateral pulmonary infiltrates most prominent in the dependent bilateral lower lobes. She continues to smoke 2 packs per day and had significant wheezing on exam. Started on Solu-Medrol 60 mg q.6 hours for 3 days then weaned to Prednisone. Remains on neb treatments. Was receiving Lasix IV with good UOP. BNP 4970 and Echo as mentioned below. She had good UOP with the Lasix and Lasix stopped 01/18 due to developing contraction alkalosis. Edema better. She also was on Rocephin and Azithromycin (started 01/15) for possible PNA but felt less likely; Abx stopped after 5 days. Sputum and BCx negative. Doppler of the bilateral LE negative for DVT. Continue to wean down O2 as tolerated. Pulmonary consult and appreciate their input. Flutter valve. Check CXR (3) COPD (chronic obstructive pulmonary disease): Code(s): J44.9 - Chronic obstructive pulmonary disease, unspecified Status: Acute Assessment and Plan: As above. Continue Trelegy (4) CHF (congestive heart failure): Code(s): I50.9 - Heart failure, unspecified Status: Acute Assessment and Plan: Chest x-ray showed bilateral lower lobe airspace disease with a BNP of 4970. Echo showing EF 60-65% and diastolic dysfunction and mild pulmonary HTN. Patient with acute diastolic CHF treated with IV Lasix. She had excellent urine output with Lasix. Lasix has been stopped due to contraction alkalosis. Serum bicarb better after Diamox. CXR 01/19 still showing diffuse bilateral pulmonary interstitial disease. Unclear if this is CHF or ILD. Start Lasix orally. (5) Elevated troponin: Code(s): R77.8 - Other specified abnormalities of plasma proteins Status: Acute Assessment and Plan: Troponin elevated to 0.045 but in a flat pattern. Suspected elevated troponins related to her acute respiratory failure and CHF. [place] this was nonischemic myocardial injury. (6) Polycythemia secondary to hypoxia: Code(s): D75.1 - Secondary polycythemia Status: Acute Assessment and Plan: Patient has chronically elevated hemoglobin in the 18-21 range on chart review. Erythropoietin level normal this admission. Hemoglobin essentially unchanged since admission. DONAVON testing pending. Continue to monitor. (7) Bradycardia: Code(s): R00.1 - Bradycardia, unspecified Status: Acute Assessment and Plan: Patient with asymptomatic bradycardia with heart rate in the 50s. No beta-blockers or rate control medications on chart review. Probably related to her untreated ANIBAL. HR has been stable for many days. Tele stopped yesterday. (8) Hypothyroidism, acquired, autoimmune: Code(s): E06.3 - Autoimmune thyroiditis Status: Acute Assessment and Plan: TSH 1.0 on admission. Continue levothyroxine (9) Insulin dependent diabetes mellitus:
[2021-01-21] MEDS: INSULIN ASPART (*BKC) 100 UNITS/ML SUB-Q ×2 (12:21→16:38)
[2021-01-21 12:32] LABS: Glucose Point of Care 217 mg/dl (65-105)
[2021-01-21] MEDS: FUROSEMIDE 20 MG TABLET PO (12:36)
--- NOTE | 2021-01-21 14:03 | HOMEO2EVAL ---
Evaluation was performed at [facility] Home Oxygen Evaluation RC: Home Oxygen (O2) Evaluation Start: 01/21/21 11:24 Freq: ONCE Status: Active Protocol: RPE Activity Type Activity Date Activity User E-Sign Co-Sign Detail Recorded Client Recorded Date Recorded By Document 01/21/21 13:00 DJO [email or web address] 01/21/21 14:03 DJO Document 01/21/21 13:05 DJO [email or web address] 01/21/21 14:03 DJO Document 01/21/21 13:10 DJO [email or web address] 01/21/21 14:03 DJO Document 01/21/21 13:15 DJO [email or web address] 01/21/21 14:03 DJO Document 01/21/21 13:20 DJO [email or web address] 01/21/21 14:03 DJO Document 01/21/21 13:25 DJO [email or web address] 01/21/21 14:03 DJO Document 01/21/21 13:30 DJO [email or web address] 01/21/21 14:03 DJO Document 01/21/21 13:35 DJO [email or web address] 01/21/21 14:03 DJO Document 01/21/21 13:50 DJO [email or web address] 01/21/21 14:03 DJO 01/21/21 01/21/21 01/21/21 13:00 13:05 13:10 Home O2 Evaluation Test Phase Resting Resting Resting Oxygen Delivery Room Air Nasal Cannula Nasal Cannula Oxygen Flow Rate (L/min) 1 2 Pulse Oximetry (90-100 %) 85 L 86 L 87 L Pulse Rate (60-100 beats/min) 90 87 86 Treatment Charges O2 Evaluation - Inpatient 01/21/21 01/21/21 01/21/21 13:15 13:20 13:25 Home O2 Evaluation Test Phase Resting Resting Exercise Oxygen Delivery Nasal Cannula Nasal Cannula Nasal Cannula Oxygen Flow Rate (L/min) 3 4 4 Pulse Oximetry (90-100 %) 88 L 90 87 L Pulse Rate (60-100 beats/min) 85 82 97 Treatment Charges 01/21/21 01/21/21 01/21/21 13:30 13:35 13:50 Home O2 Evaluation Test Phase Exercise Exercise Resting Oxygen Delivery Nasal Cannula Nasal Cannula Nasal Cannula Oxygen Flow Rate (L/min) 5 6 4 Pulse Oximetry (90-100 %) 88 L 90 90 Pulse Rate (60-100 beats/min) 96 100 84 Treatment Charges
--- NOTE | 2021-01-21 14:23 | PC.NURSE ---
[facility] to speak with the oncology nurse to arrange for phlebotomy to come complete an order. They stated they would look into what needs to be done and call me back. Also, stated that Dr. Riddle would be over later to see the patient. Awaiting a return call from the oncology nurse.
--- NOTE | 2021-01-21 14:29 | PCRCNOTE ---
HOME OXYGEN SET UP WITH [facility]. PHONE NUMBER [phone]. TANK HAS BEEN DELIVERED TO PT'S ROOM FOR DISCHARGE.
[2021-01-21 16:13] LABS: Glucose Point of Care 403 mg/dl (65-105)
[2021-01-21 16:20] LABS: Glucose Point of Care 374 mg/dl (65-105)
[2021-01-21] MEDS: FUROSEMIDE INJ 40 MG/4 ML VIAL IV PUSH (16:38)
[2021-01-21] MEDS: metFORMIN HCL 500 MG TABLET 1000 MG PO (17:06)
[2021-01-21] MEDS: guaiFENesin 12 HR 600 MG TABCR PO (20:45)
[2021-01-21] MEDS: INSULIN GLARGINE (*BKC) 100 UNITS/ML 20 UNITS SUB-Q (20:45)
[2021-01-21 20:51] LABS: Glucose Point of Care 222 mg/dl (65-105)
[2021-01-22] VITALS (13 sets, daily range): BP systolic 115–128; BP diastolic 64–79; PULSE 63–89; RESP 17–20; TEMP 36.3–36.8; O2SAT 92–95
[2021-01-22] MEDS: ALBUTEROL SULFATE NEB 2.5 MG/0.5 ML INH INHALATION ×4 (03:23→20:02)
--- NOTE | 2021-01-22 04:10 | PC.NURSE ---
Called supervisory it specialist yesterday evening regarding phlebotomy procedure will call and notify oncology nurse this am.
[2021-01-22] MEDS: LEVOTHYROXINE SODIUM 75 MCG TABLET PO (05:59)
[2021-01-22] MEDS: LEVOTHYROXINE SODIUM 100 MCG TABLET PO (05:59)
[2021-01-22 06:14] LABS: Hematocrit 63.7 % (37.0-47.0); Hemoglobin 20.2 g/dL (12.0-15.0); Immature Platelet Fraction Pct 5.3 % (0.9-11.2); Mean Corpuscular HGB Conc 31.7 g/dl (32-36); Mean Corpuscular Hemoglobin 31.6 pg (26-34); Mean Corpuscular Volume 99.7 fl (80-100); Mean Platelet Volume 10.5 fl (7.4-10.4); Platelet Count Result 147 k/mm3 (150-375); Red Blood Count 6.39 M/mm3 (4.2-5.4); Red Cell Distribution Width 19.7 % (11.5-14.5)
[2021-01-22 06:35] LABS: NT Pro B Type Natriuretic Pept 269 pg/mL (5-100)
[2021-01-22 06:53] LABS: Anion Gap 4 mmol/L (8-16); Blood Urea Nitrogen 25 mg/dL (7-17); Calcium 9.3 mg/dL (8.4-10.2); Carbon Dioxide 35 mmol/L (22-30); Chloride 92 mmol/L (98-107); Estimated CRCL calculation 83 ml/min; Estimated Glomerular Filt Rate > 60; Glucose 125 mg/dL (65-110); Potassium 3.8 mmol/L (3.4-5.0); Sodium 131 mmol/L (137-145)
[2021-01-22 07:16] LABS: Glucose Point of Care 141 mg/dl (65-105)
[2021-01-22] MEDS: INSULIN ASPART (*BKC) 100 UNITS/ML 6 UNITS SUB-Q ×3 (07:20→16:50)
[2021-01-22] MEDS: predniSONE 20 MG TABLET 40 MG PO (07:27)
[2021-01-22] MEDS: metFORMIN HCL 500 MG TABLET 1000 MG PO ×2 (07:27→16:49)
[2021-01-22] MEDS: ENOXAPARIN 40 MG/0.4 ML SYRINGE SUB-Q (07:28)
[2021-01-22] MEDS: ASPIRIN 81 MG ENTERIC TABLET PO (07:28)
[2021-01-22] MEDS: CHOLECALCIFEROL 1,000 UNITS TABLET 5000 UNITS PO (07:28)
[2021-01-22] MEDS: FAMOTIDINE 20 MG TABLET PO ×2 (07:28→20:10)
[2021-01-22] MEDS: FUROSEMIDE 20 MG TABLET PO (07:28)
[2021-01-22] MEDS: SIMVASTATIN 20 MG TABLET PO (07:29)
[2021-01-22] MEDS: guaiFENesin 12 HR 600 MG TABCR PO ×2 (07:29→20:10)
[2021-01-22] MEDS: NICOTINE (*PBKC) 21 MG PATCH 1 PATCH TRANSDERM (07:29)
[2021-01-22] MEDS: FLUTICASONE/UMECLIDIN/VILANTER 100-62.5-25 MCG ELLIPTA 1 PUFF INHALATION (10:05)
--- NOTE | 2021-01-22 10:33 | PCNWS ---
Weekly nutritional screen. Patient is tolerating current diet with adequate intake. No weight loss reported. No nutritional needs at this time.
[2021-01-22 11:43] LABS: Glucose Point of Care 219 mg/dl (65-105)
[2021-01-22] MEDS: INSULIN ASPART (*BKC) 100 UNITS/ML SUB-Q ×2 (11:45→16:51)
--- NOTE | 2021-01-22 11:48 | PM.IMPN ---
Progress Note: A&P Assessment and Plan (1) Confusion: Code(s): R41.0 - Disorientation, unspecified Status: Acute Assessment and Plan: Patient developed confusion. Etiology unclear. CT of the brain okay. We adjusted BiPAP which improved her hypercapnia. HIV negative; B12/folate normal. Mental status much better. Continue to follow. (2) Acute respiratory failure with hypoxia and hypercapnia: Code(s): J96.01 - Acute respiratory failure with hypoxia; J96.02 - Acute respiratory failure with hypercapnia Status: Acute Assessment and Plan: Patient brought in by EMS for evaluation for hypoxia. EMS reports they found patient at home lethargic with SpO2 of 60% on room air. She was placed on BIPAP by EMS and was given neb tx and Solu Medrol. CXR showing CMG and bilateral LL airspace disease. ABG 7.32/50/86 on BiPAP. COVID swab negative. Likely multifactorial from COPD exacerbation, CHF exacerbation and untreated ANIBAL with possible Obeisty hypoventilation syndrome (Aspiration?). CTA negative for PE but did show patchy bilateral pulmonary infiltrates most prominent in the dependent bilateral lower lobes. MBS showing consistent but only trace penetration of both thin and nectar thick liquid into the very top of the airway most clearing with the swallow and only pencil thin remaining in the very top of the airway at the completion of each swallow. No true aspiration noted although microaspiration can not be ruled out. She continues to smoke 2 packs per day and had significant wheezing on exam. Started on Solu-Medrol 60 mg q.6 hours for 3 days then weaned to Prednisone. Remains on neb treatments. Was receiving Lasix IV with good UOP. Echo as mentioned below. She had good UOP with the Lasix and Lasix stopped 01/18 due to developing contraction alkalosis. Edema better. She also was on Rocephin and Azithromycin for possible PNA and stopped after 5 days. Sputum and BCx negative. WBC slightly elevated but felt related to steroids. Doppler of the bilateral LE negative for DVT. Lasix resumed given CXR findings 01/21 showing diffuse interstitial pattern. Continue to wean down O2 as tolerated. Pulmonary consult and appreciate their input. Encourage Flutter valve use. Not sure if her hypoxia will improve beyond her current settings. Patient not tolerating BiPAP at these high settings. She is refusing BiPAP. She has failed BiPAP clinically and by ABG. Will try Trelegy NIV. She will need to use this nocturnally and with naps at home. Spoke with respiratory to arrange. (3) COPD (chronic obstructive pulmonary disease): Code(s): J44.9 - Chronic obstructive pulmonary disease, unspecified Status: Acute Assessment and Plan: As above. Continue Trelegy and scheduled Albuterol. On prednisone 40mg daily x 5 days. (4) CHF (congestive heart failure): Code(s): I50.9 - Heart failure, unspecified Status: Acute Assessment and Plan: Chest x-ray on admission showed bilateral lower lobe airspace disease with a BNP of 4970. Echo showing EF 60-65% and diastolic dysfunction and mild pulmonary HTN. Patient with acute diastolic CHF treated with IV Lasix. She had excellent urine output with Lasix. Lasix has been stopped due to contraction alkalosis. Serum bicarb better after Diamox. CXR 01/21 still showing diffuse bilateral pulmonary interstitial disease. Unclear if this is CHF or ILD. Started Lasix orally and given IV once yesterday with excellent UOP. No change in her overall hypoxia however. Will repeat Lasix IV x1. (5) Elevated troponin: Code(s): R77.8 - Other specified abnormalities of plasma proteins Status: Acute Assessment and Plan: Troponin elevated to 0.045 but in a flat pattern. EKG showing borderline ST-T wave changes. Suspected elevated troponins related to her acute respiratory failure and CHF. [place] this was nonischemic myocardial injury. 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
--- NOTE | 2021-01-22 11:58 | PCOTNOTE ---
Attempted to see patient this am, however patient declined stating, No, they tell me I get to go home tomorrow, so I'm gonna pass. I have help at home, and you know what I live in? I live in my underwear and a t-shirt. My kids know it, and even the [employer] rhea knows it. I don't care. So, I don't think I'm gonna need help getting dressed, but thank you.
--- NOTE | 2021-01-22 12:56 | PDONCCN ---
HPI - Date of Consult Date/Time: 01/22/21 12:56 Requesting Physician: Ayesha Fuller MD Primary Care Provider: Lucille Montiel MD - Consult Narrative Reason for consult: Erythrocytosis Narrative: Sarah Rodriguez is a 65 year old female with history of smoking 2 pack per day for more than 50 years duration along with history of type 2 diabetes hypothyroidism and hyperlipidemia along with COPD came into the ER with worsening of shortness of breath. She was having some cough without any productive sputum. No fevers and chills. CTA is chest was negative for PE but there was patchy pulmonary infiltrate. Labs showed hematocrit of 63.7 with WBC of 11. Patient was admitted for worsening of COPD and CHF. Her COVID test was also negative. Review of Systems - Review of Systems All systems reviewed & are unremarkable except as noted in HPI and [facility] Medical History: Medical History (Last Reviewed 01/15/21 @ 12:13 by Chata Peterson MD) Centrilobular emphysema Claudication of both lower extremities COPD (chronic obstructive pulmonary disease) Hypothyroidism, acquired, autoimmune Hypoxemia Mixed hyperlipidemia Polycythemia secondary to hypoxia Tobacco abuse disorder Type 2 diabetes mellitus with hyperglycemia, without long-term current use of insulin Surgical History: Surgical History (Last Reviewed 09/24/20 @ 09:02 by Lisa Ochoa) History of tonsillectomy History of tubal ligation Family History: Family History (Last Reviewed 01/15/21 @ 18:00 by Val Bae RN) Mother Diabetes mellitus Hypertension Family history of arthritis Family history of thyroid disease Patient's mother is Sibling Diabetes mellitus Asthma Patient's brother is in good health Family history of thyroid disease Father Patient's father is in good health - Social History Social History: Social History (Last Updated 09/24/20 @ 09:02 by Lisa Ochoa) Gender Identity: Gender identity (if verbalized by the patient): Female Sexual Orientation: Sexual Orientation (if Verbalized by the Patient): Straight or Heterosexual Alcohol Use: Alcohol intake: never Substance Use: Substance use: never Substance use type: does not use Others: Spiritual care concerns: No Smoking Status: Smoking status: Current every day smoker Tobacco type: cigarettes Second hand tobacco smoke exposure: Yes Smoking Pack-years: Smoking packs per day: 2 Smoking cigarettes per day: 40.0 Years smoked: 50 Smoking pack-years: 100.00 Meds Home Medications Medication Instructions Recorded Confirmed Type aspirin 81 mg tablet 81 mg PO DAILY 06/12/19 01/15/21 History furosemide 20 mg tablet 20 mg PO QAM PRN #30 tablet 09/24/20 01/15/21 Rx levothyroxine 175 mcg tablet 175 mcg PO DAILY #90 tablet 09/25/20 01/15/21 Rx meloxicam 15 mg tablet 15 mg PO DAILY #90 tablet 09/25/20 01/15/21 Rx metformin 1,000 mg tablet 1,000 mg PO BID #180 tablet 09/25/20 01/15/21 Rx simvastatin 20 mg tablet 20 mg PO DAILY #90 tablet 09/25/20 01/15/21 Rx sitagliptin 100 mg tablet 100 mg PO DAILY #90 tablet 12/24/20 01/15/21 Rx fluticasone fur. 100 mcg-umeclid 1 inh INHALATION DAILY #60 each 01/01/21 01/15/21 Rx 62.5 mcg-vilant 25 mcg inhalat.powder albuterol sulfate 90 mcg/actuation 2 puff INHALATION Q4H PRN #18 gm 01/05/21 01/15/21 Rx aerosol inhaler cholecalciferol (vitamin D3) 1 unit PO DAILY 01/15/21 01/15/21 History [Vitamin D3] Allergies Allergy/AdvReac Type Severity Reaction Status Date / Time No Known Allergies Allergy Unknown Verified 01/15/21 11:58 Results - Labs CBC & Chem 7: 01/22/21 05:51 01/22/21 05:51 Labs: Short CBC 01/22/21 Range/Units 05:51 WBC 11.0 H (4.5-10.0) K/mm3 Hgb 20.2 H (12.0-15.0) g/dL Hct 63.7 H (37.0-47.0) % Plt Count 147 L (150-375) k/mm3 [facility] 01/22/21 05:51 [place]
[2021-01-22] MEDS: FUROSEMIDE INJ 40 MG/4 ML VIAL IV PUSH (14:01)
--- NOTE | 2021-01-22 15:22 | PCRCNOTE ---
Patient is being set up with home Trilogy unit with [facility]. Order is scanned in. RT from [facility] will be in 01/23/21 to do a patient instruct.
[2021-01-22 16:50] LABS: Glucose Point of Care 302 mg/dl (65-105)
[2021-01-22] MEDS: INSULIN GLARGINE (*BKC) 100 UNITS/ML 20 UNITS SUB-Q (20:10)
[2021-01-22] MEDS: WATER FOR IRRIGATION, STERILE 1,000 ML BOTTLE 1000 ML (20:13)
[2021-01-22 20:18] LABS: Glucose Point of Care 184 mg/dl (65-105)
[2021-01-23] VITALS (9 sets, daily range): BP systolic 105–134; BP diastolic 55–67; PULSE 67–88; RESP 16–22; TEMP 35.9–36.3; O2SAT 90–97
[2021-01-23] MEDS: ALBUTEROL SULFATE NEB 2.5 MG/0.5 ML INH INHALATION ×2 (02:11→07:53)
[2021-01-23] MEDS: LEVOTHYROXINE SODIUM 100 MCG TABLET PO (05:39)
[2021-01-23] MEDS: LEVOTHYROXINE SODIUM 75 MCG TABLET PO (05:39)
[2021-01-23 06:08] LABS: Hematocrit 63.4 % (37.0-47.0); Hemoglobin 20.2 g/dL (12.0-15.0); Immature Platelet Fraction Pct 5.1 % (0.9-11.2); Mean Corpuscular HGB Conc 31.9 g/dl (32-36); Mean Corpuscular Hemoglobin 32.3 pg (26-34); Mean Corpuscular Volume 101.3 fl (80-100); Mean Platelet Volume 10.6 fl (7.4-10.4); Platelet Count Result 125 k/mm3 (150-375); Red Blood Count 6.26 M/mm3 (4.2-5.4); Red Cell Distribution Width 19.4 % (11.5-14.5); White Blood Count 10.1 K/mm3 (4.5-10.0)
[2021-01-23 07:20] LABS: Anion Gap 4 mmol/L (8-16); Blood Urea Nitrogen 28 mg/dL (7-17); Calcium 9.7 mg/dL (8.4-10.2); Carbon Dioxide 34 mmol/L (22-30); Chloride 93 mmol/L (98-107); Estimated CRCL calculation 108 ml/min; Estimated Glomerular Filt Rate > 60; Glucose 133 mg/dL (65-110); Potassium 4.2 mmol/L (3.4-5.0); Sodium 131 mmol/L (137-145)
[2021-01-23] MEDS: FLUTICASONE/UMECLIDIN/VILANTER 100-62.5-25 MCG ELLIPTA 1 PUFF INHALATION (07:54)
[2021-01-23 07:55] LABS: Glucose Point of Care 156 mg/dl (65-105)
[2021-01-23] MEDS: ASPIRIN 81 MG ENTERIC TABLET PO (08:14)
[2021-01-23] MEDS: predniSONE 20 MG TABLET 40 MG PO (08:14)
[2021-01-23] MEDS: CHOLECALCIFEROL 1,000 UNITS TABLET 5000 UNITS PO (08:14)
[2021-01-23] MEDS: metFORMIN HCL 500 MG TABLET 1000 MG PO (08:14)
[2021-01-23] MEDS: FUROSEMIDE 20 MG TABLET PO (08:15)
[2021-01-23] MEDS: SIMVASTATIN 20 MG TABLET PO (08:15)
[2021-01-23] MEDS: FAMOTIDINE 20 MG TABLET PO (08:15)
[2021-01-23] MEDS: ENOXAPARIN 40 MG/0.4 ML SYRINGE SUB-Q (08:15)
[2021-01-23] MEDS: NICOTINE (*PBKC) 21 MG PATCH 1 PATCH TRANSDERM (08:15)
[2021-01-23] MEDS: INSULIN ASPART (*BKC) 100 UNITS/ML 6 UNITS SUB-Q ×2 (08:16→12:05)
[2021-01-23] MEDS: ACETAMINOPHEN 325 MG TABLET 650 MG PO (10:27)
[2021-01-23] MEDS: guaiFENesin 12 HR 600 MG TABCR PO (10:27)
[2021-01-23 12:04] LABS: Glucose Point of Care 232 mg/dl (65-105)
[2021-01-23] MEDS: INSULIN ASPART (*BKC) 100 UNITS/ML SUB-Q (12:04)
[2021-01-23 13:32] LABS: CALR Exon 9 Mutation Not Detected (Not Detected); CSF3R Exon 14/17 Mutation Not Detected (Not Detected); Clinical Indication Not Given; JAK2 Exon 12 Mutation Not Detected (Not Detected); JAK2 V617F Mutation Not Detected (Not Detected); MPL Exon 10 Mutation Not Detected (Not Detected); Specimen Source Blood
--- NOTE | 2021-01-23 14:30 | PCPTNOTE ---
Attempted therapy session, RN stated to hold for now due to Pt in procedure and then Pt is being discharged.
--- NOTE | 2021-01-23 14:41 | PC.NURSE ---
Phlebotomy preformed by oncology nurse Purnima Wilson RN. 528 ml of blood from RT AC vein.
--- NOTE | 2021-01-23 16:13 | PM.DS ---
DS: Admitting Diagnosis Admitting Diagnosis Lethargic with hypoxia DS: Discharge Diagnosis Discharge Diagnosis (1) Acute respiratory failure with hypoxia and hypercapnia: Code(s): J96.01 - Acute respiratory failure with hypoxia; J96.02 - Acute respiratory failure with hypercapnia Status: Acute Assessment and Plan: Patient brought in by EMS for evaluation for hypoxia. EMS reports they found patient at home lethargic with SpO2 of 60% on room air. She was placed on BIPAP by EMS and was given neb tx and Solu Medrol. CXR showing CMG and bilateral LL airspace disease. ABG 7.32// on BiPAP. COVID swab negative. Likely multifactorial from COPD exacerbation, CHF exacerbation and untreated ANIBAL with possible Obeisty hypoventilation syndrome (Aspiration?). CTA negative for PE but did show patchy bilateral pulmonary infiltrates most prominent in the dependent bilateral lower lobes. MBS showing consistent but only trace penetration of both thin and nectar thick liquid into the very top of the airway most clearing with the swallow and only pencil thin remaining in the very top of the airway at the completion of each swallow. No true aspiration noted although microaspiration can not be ruled out. She smokes 2 packs per day and had significant wheezing on exam. Started on Solu-Medrol 60 mg q.6 hours for 3 days then weaned to Prednisone. Remains on neb treatments. Was receiving Lasix IV with good UOP. Echo as mentioned below. She had good UOP with the Lasix and Lasix stopped 01/18 due to developing contraction alkalosis. Edema better. She also was on Rocephin and Azithromycin for possible PNA and stopped after 5 days. Sputum and BCx negative. WBC slightly elevated but felt related to steroids. Doppler of the bilateral LE negative for DVT. Lasix resumed given CXR findings 01/21 showing diffuse interstitial pattern. Pulmonary consulted and appreciate their input. Patient not tolerating BiPAP so we changed to Trilogy NIV. She had a home O2 evaluation and requires 4L/min at rest and 6L/min with exertion. (2) Confusion: Code(s): R41.0 - Disorientation, unspecified Status: Acute Assessment and Plan: Patient developed confusion while hospitalized. Etiology unclear but felt related to the hypercarbia. CT of the brain showing melchor cute findings. We adjusted BiPAP which improved her hypercapnia. HIV negative; B12/folate normal. Mental status much improved (3) COPD (chronic obstructive pulmonary disease): Code(s): J44.9 - Chronic obstructive pulmonary disease, unspecified Status: Acute Assessment and Plan: As above. Continue Trelegy and scheduled Albuterol. On prednisone 40mg daily x 5 days. (4) CHF (congestive heart failure): Code(s): I50.9 - Heart failure, unspecified Status: Acute Assessment and Plan: Chest x-ray on admission showed bilateral lower lobe airspace disease with a BNP of 4970. Echo showing EF 60-65% and diastolic dysfunction and mild pulmonary HTN. Patient with acute diastolic CHF treated with IV Lasix. She had excellent urine output with Lasix. Lasix was stopped due to contraction alkalosis. Serum bicarb better after Diamox. CXR 01/21 still showing diffuse bilateral pulmonary interstitial disease. Unclear if this is CHF or ILD. Started Lasix orally. (5) Elevated troponin: Code(s): R77.8 - Other specified abnormalities of plasma proteins Status: Acute Assessment and Plan: Troponin elevated to 0.045 but in a flat pattern. EKG showing borderline ST-T wave changes. Suspected elevated troponins related to her acute respiratory failure and CHF. [place] this was nonischemic myocardial injury. (6) Polycythemia secondary to hypoxia: Code(s): D75.1 - Secondary polycythemia Status: Acute Assessment and Plan: Patient has chronically elevated hemoglobin in the 18-21 range on chart review. Erythropoietin level normal this admission.
[2021-01-23 16:58] LABS: Glucose Point of Care 233 mg/dl (65-105)
== END 2021-01-23 17:37 | disposition home health service (06) | DRG 189 ==
LOC: ANHED 12:31 → ANHIMU 18:01 → ANH3MED 01-18 08:35 → ANHIMU 01-26 17:36
PROVIDERS: Family Medicine; Internal Medicine; Physician Assistant; Student in an Organized Health Care Education/Training Program; Admitting Provider Internal Medicine; Emergency Provider General Practice; PCP Family Medicine; Visit Provider Internal Medicine
DX: J96.01 Acute respiratory failure with hypoxia (principal); I50.31 Acute diastolic (congestive) heart failure; Z68.41 Body mass index [BMI] 40.0-44.9, adult; E66.2 Morbid (severe) obesity with alveolar hypoventilation; Z20.822 Contact with and (suspected) exposure to COVID-19; J96.02 Acute respiratory failure with hypercapnia; E11.65 Type 2 diabetes mellitus with hyperglycemia; F17.210 Nicotine dependence, cigarettes, uncomplicated; J43.2 Centrilobular emphysema; E06.3 Autoimmune thyroiditis; E78.2 Mixed hyperlipidemia; D75.1 Secondary polycythemia; R77.8 Other specified abnormalities of plasma proteins; I73.9 Peripheral vascular disease, unspecified; R41.0 Disorientation, unspecified; R00.1 Bradycardia, unspecified; W19.XXXA Unspecified fall, initial encounter; Z79.82 Long term (current) use of aspirin; Z79.84 Long term (current) use of oral hypoglycemic drugs; Z79.899 Other long term (current) drug therapy
CPT/HCPCS: 36415; 36600; 51701; 70450; 71045; 71046; 71275; 80048; 80053; 81001; 81219; 81270; 81402; 81403; 81479; 82375; 82607; 82668; 82746; 82805; 82948; 83036; 83050; 83605; 83735; 83880; 84100; 84443; 84484; 85025; 85027; 85055; 85380; 85610; 85730; 86140; 86703; 87040; 87070; 87205; 87804; 92610; 92611; 93005; 93306; 93970; 94002; 94003; 94618; 94640; 94667; 96365; 96367; 97110; 97161; 97165; 97530; 97535; 99291; A9270; C9803; G0432; J0456; J0696; J1120; J1650; J1815; J1940; J2920; J2930; J7512; Q9967; U0003; U0005

== ENCOUNTER 2021-03-17 09:26 | Outpatient (CLI) | payer OTHER, SELFPAY ==
[2021-03-17 09:43] LABS: Hemoglobin 17.3 g/dL (12.0-15.0); Mean Corpuscular HGB Conc 32.6 g/dl (32-36); Mean Corpuscular Hemoglobin 31.9 pg (26-34); Mean Corpuscular Volume 97.8 fl (80-100); Mean Platelet Volume 10.3 fl (7.4-10.4); Platelet Count Result 218 k/mm3 (150-375); Red Blood Count 5.42 M/mm3 (4.2-5.4); Red Cell Distribution Width 15.2 % (11.5-14.5); White Blood Count 10.8 K/mm3 (4.5-10.0)
== END 2021-03-17 09:27 | disposition home or self-care (01) ==
LOC: ANHLAB 09:29
PROVIDERS: PCP Family Medicine; Visit Provider Internal Medicine Hematology & Oncology
DX: D75.1 Secondary polycythemia (principal)
CPT/HCPCS: 36415; 85027

== ENCOUNTER 2022-04-05 14:20 | Outpatient (CLI) | payer MEDICARE, SELFPAY ==
--- NOTE | ~2022-04-05 | CT_ITS ---
EXAMINATION: CT lung screening DATE: 04/05/2022 14:40 INDICATION: Lung cancer screening TECHNIQUE: Computed tomography (CT) of the chest was performed without intravenous contrast. The dose -length product was 391.58 mGy-cm. Automated exposure control and iterative reconstruction technique were employed. COMPARISON: CT dated 01/15/2021 and 02/25/2020 FINDINGS: There are multiple small pulmonary nodules predominantly affecting the upper lobes measurin g 3 mm or less. No mediastinal lymphadenopathy. The upper abdomen is unremarkable. Mild thoracic spon dylosis.There is atherosclerosis of the aorta and coronary arteries. No significant pleural or perica rdial effusion. There is severe emphysema predominantly involving the upper lobes. There is lower lob e atelectasis. No endobronchial lesions. No emphysema. IMPRESSION: 1. Lung-RADS category 2: Benign appearance or behavior. Continue annual screening with noncontrast lo w-dose chest CT in 12 months. Reviewed, dictated and finalized at location B. IMPRESSION: 1. Lung-RADS category 2: Benign appearance or behavior. Continue annual screeni ng with noncontrast low-dose chest CT in 12 months.
== END 2022-04-05 14:21 | disposition home or self-care (01) ==
PROVIDERS: PCP Family Medicine; Visit Provider Physician Assistant
DX: Z12.2 Encounter for screening for malignant neoplasm of respiratory organs (principal); Z87.891 Personal history of nicotine dependence
CPT/HCPCS: 71271

== ENCOUNTER 2023-04-07 08:37 | Outpatient (CLI) | payer MEDICARE, SELFPAY ==
--- NOTE | ~2023-04-07 | CT_ITS ---
EXAMINATION: CT lung screening DATE: 04/07/2023 09:12 INDICATION: Personal history of nicotine dependence TECHNIQUE: Computed tomography (CT) of the chest was performed without intravenous contrast. The dose -length product was 305.37 mGy-cm. Automated exposure control and iterative reconstruction technique were employed. COMPARISON: CT dated 04/05/2022 FINDINGS: Heart size normal. Mild atherosclerosis of the aorta and coronary arteries. No significant pleural or pericardial effusion. Upper abdomen is unremarkable. Borderline sized mediastinal lymph no ashley, likely reactive. There are stable bilateral pulmonary nodules measuring 3 mm or less, likely emerald ign. There is emphysema. No endobronchial lesions. No pneumothorax. There is dependent atelectasis. M ild thoracic spondylosis. IMPRESSION: 1. Lung-RADS category 2: Benign appearance or behavior. Continue annual screening with noncontrast lo w-dose chest CT in 12 months. Reviewed, dictated and finalized at location L. IMPRESSION: 1. Lung-RADS category 2: Benign appearance or behavior. Continue annual screeni ng with noncontrast low-dose chest CT in 12 months.
== END 2023-04-07 08:38 | disposition home or self-care (01) ==
PROVIDERS: PCP Family Medicine; Visit Provider Physician Assistant
DX: Z12.2 Encounter for screening for malignant neoplasm of respiratory organs (principal); F17.210 Nicotine dependence, cigarettes, uncomplicated
CPT/HCPCS: 71271

== ENCOUNTER 2023-09-18 17:25 | Inpatient (IN) | payer MEDICARE, SELFPAY ==
[2023-09-18] VITALS (22 sets, daily range): BP systolic 118–136; BP diastolic 49–90; PULSE 81–143; RESP 19–30; TEMP 36.9; O2SAT 68–99; BMI 42.1
--- NOTE | ~2023-09-18 | CT_ITS ---
EXAMINATION: CTA chest PE protocol DATE: 09/18/2023 20:16 INDICATION: SOA TECHNIQUE: Computed tomography angiography (CTA) of the chest was performed with 100 mL Omnipaque-350 intravenous contrast timed to evaluate the pulmonary arteries. Coronal maximum intensity projection 3D-reconstructions were created by the technologist. The dose-length product (DLP) was 785.76 mGy-cm. Automated exposure control and iterative reconstruction technique were employed. COMPARISON: 04/07/2023. FINDINGS: Lung parenchyma and airways: Moderate-severe emphysematous change. Diffuse reticulonodular opacities, more prominent in the right lung. Scattered areas of centrilobular nodular opacities and bronchovasc ular consolidation. Pleura: Unremarkable. Thoracic inlet, axillae and chest wall: Unremarkable. Thoracic aorta: No significant dilation. No dissection. Mediastinum: Mediastinal and bilateral hilar lymph node enlargement. Heart and pericardium: Normal. Coronary artery calcifications: Mild. Upper abdomen: No significant finding. Bones: No acute osseous finding. Pulmonary arteries: Study quality: Adequate. No pulmonary emboli detected. IMPRESSION: No CT evidence of acute pulmonary embolus. Diffuse tree-in-bud opacities concerning for atypical infection. Moderate-severe emphysema. Reviewed, dictated and finalized at location K.
--- NOTE | ~2023-09-18 | XR_ITS ---
EXAMINATION: XR chest 1V portable Exam Date/Time: 09/18/2023 18:05 CDT HISTORY: SOB, COPD, 6L OXYGEN USE DAILY Comparison: 01/21/2021, report only. RESULT: Lines, tubes, and devices: None. Lungs and pleura: Moderate diffuse reticular opacities with indistinct vessels. Linear bibasilar opa cities, likely scar/atelectasis. Bilateral costophrenic angle blunting. Cardiomediastinal silhouette: Prominent central pulmonary arteries as can be seen with pulmonary art erial hypertension. Other: No acute osseous or upper abdominal finding. IMPRESSION: Moderate interstitial edema. Possible small bilateral pleural effusions. Reviewed, dictated and finalized at location K.
--- NOTE | 2023-09-18 17:53 | ECG_ITS ---
Measurements Intervals [place] Rate: 142 P: 70 PA: 157 QRS: 90 QRSD: 90 T: 73 QT: 342 AVG RR: 593 QTc: 424 QTCB: 457 QTCF: 418 Interpretive Statements ATYPICAL ATRIAL FLUTTER WITH RVR LOW QRS VOLTAGE IN PRECORDIAL LEADS [QRS DEFLECTION < 1.0 mV IN CHEST LEADS} ABNORMAL ECG SEE SCANNED COPY FOR SIGNATURE MTDD
[2023-09-18 18:05] LABS: Alanine Aminotransferase 67 U/L (6-35); Alkaline Phosphatase 201 U/L (38-126); Anion Gap 7 mmol/L (4-12); Aspartate Amino Transferase 46 U/L (14-36); Blood Urea Nitrogen 14 mg/dL (7-17); Calcium 9.6 mg/dL (8.4-10.2); Carbon Dioxide 34 mmol/L (22-30); Chloride 94 mmol/L (98-107); Estimated CRCL calculation 118 ml/min; Estimated Glomerular Filt Rate > 60; Glucose 223 mg/dL (65-110); Potassium 3.9 mmol/L (3.4-5.0); Sodium 135 mmol/L (137-145)
[2023-09-18] MEDS: methylPREDNISolone SOD SUCC 125 MG VIAL IV PUSH (18:11)
[2023-09-18] MEDS: IPRATROPIUM BR 0.02% INH SOLN 0.5 MG/2.5 ML VIAL 1.5 MG INHALATION (18:18)
[2023-09-18] MEDS: LEVALBUTEROL NEB 1.25 MG/3 ML 2.5 MG INHALATION (18:18)
[2023-09-18 18:26] LABS: Alveolar/Arterial O2 Gradient 584.6 mmHg; Base Excess ABG 6.6 mEq/l (+/-2.0); Carboxyhemoglobin 3.9 % THb (0-2.0); Fractional Inspired Oxygen 100 %; HCO3 ABG 33.7 mEq/l (22.0-26.0); Methemoglobin ABG 0.1 %THb (0-1.5); Oxygen Content ABG 16.2 %vol (16.0-22.0); Oxygen Saturation ABG 92.7 % (95.0-100.0); Oxyhemoglobin 88.9 % THb (90.0-100.0); PCO2 ABG 59.9 mmHg (35.0-45.0); PO2 ABG 68.5 mmHg (80.0-100.0); PO2 FiO2 Ratio Arterial Blood 0.69 %; Reduced Hemoglobin 7.1 %THb (0-5.0); Total Hemoglobin 12.9 g/dL (12.0-18.0); pH ABG 7.368 (7.350-7.450)
[2023-09-18 18:27] LABS: Device NON-REBREATHER MASK; Modified Allen's Test Pass; Site Drawn RIGHT RADIAL
[2023-09-18 18:33] LABS: Basophils Absolute Auto 0.1 K/mm3 (0.0-0.1); Basophils Percent Auto 0.4 % (0.2-1.2); Eosinophils Percent Auto 0.2 % (0-4.4); Hematocrit 38.4 % (37.0-47.0); Hemoglobin 12.2 g/dL (12.0-15.0); Immature Granulocyte Absolute 0.11 K/mm3 (0.00-0.031); Immature Granulocyte Percent A 0.6 % (0-0.5); Lymphocytes Absolute Auto 1.37 K/mm3 (0.9-3.2); Lymphocytes Percent Auto 7.6 % (18.3-44.2); Mean Corpuscular HGB Conc 31.8 g/dl (32-36); Mean Corpuscular Hemoglobin 30.7 pg (26-34); Mean Corpuscular Volume 96.5 fl (80-100); Monocytes Absolute Auto 1.4 K/mm3 (0.1-0.6); Monocytes Percent Auto 7.9 % (2.6-8.5); Neutrophils Absolute Auto 15.1 K/mm3 (1.3-6.7); Neutrophils Percent Auto 83.3 % (45.5-73.1); Platelet Count Result 380 k/mm3 (150-375); Red Blood Count 3.98 M/mm3 (4.2-5.4); Red Cell Distribution Width 14.1 % (11.5-14.5); White Blood Count 18.1 K/mm3 (4.5-10.0)
--- NOTE | 2023-09-18 18:46 | ED.SOB ---
HPI - SOB/Dyspnea General Chief Complaint: Shortness of Breath/Dyspnea Stated Complaint: SOB Time Seen by Provider: 09/18/23 17:41 History of Present Illness HPI Narrative: Patient is a 68-year-old female who presents ER with shortness of breath. Ongoing over last 3 weeks after she began catch a cold. She has cough that is nonproductive. No fevers or chills. Patient has COPD wears 6 L at baseline. Today she noticed that her oxygen level was in the 60s and came into the ER for further evaluation. No chest pain or chest pressure. A additional complaints. Patient is on high-flow oxygen it does not appear to be in any distress and is speaking in full sentences. Related Data Home Medications Medication Instructions Recorded Confirmed aspirin 81 mg tablet 81 mg PO DAILY 06/12/19 08/03/23 cholecalciferol (vitamin D3) 125 1 unit PO DAILY 01/15/21 08/03/23 mcg (5,000 unit) tablet (Vitamin D3) Allergies Allergy/AdvReac Type Severity Reaction Status Date / Time No Known Allergies Allergy Unknown Verified 09/18/23 17:59 Review of Systems Review of Systems: All systems reviewed & are unremarkable except as noted in HPI and below Constitutional: Constitutional: Denies chills, Reports fatigue and Denies fever(s) ENT: Reports system reviewed and no additional complaints, except as documented Cardiovascular: Cardiovascular: Reports no additional cardiovascular complaints Respiratory: Respiratory: Reports chest congestion, Reports cough, Reports dyspnea and Reports wheezing Gastrointestinal: Gastrointestinal: Reports no additional gastrointestinal complaints Genitourinary: Genitourinary: Reports no additional female genitourinary complaints Integumentary/Breasts: Skin/Breast: Reports system reviewed and no additional complaints, except as docu [facility] Past Medical History Medical History Centrilobular emphysema Claudication of both lower extremities COPD (chronic obstructive pulmonary disease) Hypothyroidism, acquired, autoimmune Hypoxemia Mixed hyperlipidemia Polycythemia secondary to hypoxia Tobacco abuse disorder Type 2 diabetes mellitus with hyperglycemia, without long-term current use of insulin Surgical History Surgical History History of tonsillectomy History of tubal ligation Family History Family History Mother Diabetes mellitus Hypertension Family history of arthritis Family history of thyroid disease Patient's mother is Sibling Diabetes mellitus Asthma Patient's brother is in good health Family history of thyroid disease Father Patient's father is in good health Social History Social History (Updated 08/03/23 @ 08:31 by Lisa Ochoa) Social History: Smoking packs per day: 1 Smoking cigarettes per day: 20.0 Years smoked: 50 Smoking pack-years: 50.00 Smoking status: Current every day smoker Tobacco type: cigarettes Second hand tobacco smoke exposure: Yes Alcohol intake: never Substance use: never Substance use type: does not use Do You Feel Safe in your Home?: Yes Lack of Transportation: No Lack of Food: Never True Current Housing: I Have Housing Concerned About Future Housing: No Difficulty Paying Gas/Electric Bills: No Difficulty Paying for Meds: No Currently Unemployed: YES Education: Don't Know Living arrangements: with family Additional living arrangements comments: Pt lives with her son Occupation/Education: retired Gender identity (if verbalized by the patient): Female Sexual Orientation (if Verbalized by the Patient): Straight or Heterosexual Spiritual care concerns: No Exam Narrative: GENERAL: Well-appearing, well-nourished, and in no acute distress. HEAD: Normocephalic, atraumatic. ENT: Mucous membranes moist.
--- NOTE | 2023-09-18 19:39 | PC.NURSE ---
this rn assumed care of patient. this rn took patient report from RAY carmona.
[2023-09-18] MEDS: AZITHROMYCIN 500 MG/NS 250 ML 500 MG/250 ML BAG 250 MG IVPB (19:54)
--- NOTE | 2023-09-18 21:14 | ADMGEN ---
This patient, Sarah Rodriguez, was admitted to IMU Room 204-01. Patient/family oriented to hospital policies and general routines including ID bracelet, bed and alarms, visiting hours, pain management, procedures, bathroom and other care routines, personal items, smoking policy, room service/diet, and visiting hours. Information on how to activate the Rapid Response Team has been discussed. Patient/Family are encouraged to report perceived risks to care and to ask questions if they do not understand what they are told or what they should do.
[2023-09-18 22:47] LABS: Glucose Point of Care 269 mg/dl (65-105)
--- NOTE | 2023-09-18 23:40 | PM.IMHP ---
H&P: HPI History of Present Illness Date/Time: 09/18/23 22:00 Chief Complaint: Shortness of breath. Narrative: This is a 68-year-old female smoker with chronic obstructive pulmonary disease, chronic respiratory failure on 6 L nasal cannula, type 2 diabetes mellitus, and hyperlipidemia who presented to the emergency department via private vehicle for evaluation of shortness of breath. The patient provides the following history. About 10 days ago she developed URI symptoms to include sinus congestion, rhinorrhea, and cough productive of thick sputum. She has had increasing dyspnea on lesser and lesser exertion since that time and has been using her rescue inhaler more often much benefit. She has not been evaluated for this previously and has not taken any medications to help with her symptoms. She denies fever, chills, sweats, headache, chest and pleuritic pain, palpitations, hemoptysis, nausea, vomiting, diarrhea, lower extremity edema, and calf pain. In the ED: She was afebrile on arrival with stable blood pressures. SpO2 was 68% on arrival and she is currently on 10 L high-flow with an SpO2 of 100%. ABG showed a pH of 7.368, pCO2 59.9, PO2 68.5, bicarb 33.7. Labs were significant for a WBC count of 18.1, hemoglobin 12.2, platelet 380, sodium 135, chloride 94, carbon dioxide 34, glucose 223, AST 46, ALT 67, alkaline phosphatase 201. Chest CTA showed no evidence of pulmonary embolus but did show diffuse tree-in-bud opacities concerning for atypical infection as well as moderate to severe emphysema. She was given a dose of IV Solu-Medrol, a nebulizer treatment, and was started on azithromycin and ceftriaxone and she is being admitted in this setting for further treatment. Review of Systems Review of Systems: 12 systems were reviewed and are negative except for as per HPI. [facility] Past Medical History Medical History (Updated 09/18/23 @ 23:49 by Ashly Mancuso PA-C) Centrilobular emphysema Chronic obstructive pulmonary disease Chronic respiratory failure with hypoxia, on home oxygen therapy Claudication of both lower extremities Hypothyroidism Mixed hyperlipidemia Polycythemia secondary to hypoxia Tobacco abuse disorder Type 2 diabetes mellitus with hyperglycemia, without long-term current use of insulin Surgical History Surgical History History of tonsillectomy History of tubal ligation Family History Family History Mother Diabetes mellitus Hypertension Family history of arthritis Family history of thyroid disease Patient's mother is Sibling Diabetes mellitus Asthma Patient's brother is in good health Family history of thyroid disease Father Patient's father is in good health Social History Social History (Updated 09/18/23 @ 23:48 by Ashly Mancuso PA-C) Social History: Surrogate medical decision maker: Ekta Chaidez, sibling. Code status: Full code. Smoking packs per day: 1 Smoking cigarettes per day: 20.0 Years smoked: 50 Smoking pack-years: 50.00 Smoking status: Current every day smoker Tobacco type: cigarettes Second hand tobacco smoke exposure: Yes Alcohol intake: never Substance use: never Substance use type: does not use Do You Feel Safe in your Home?: Yes Lack of Transportation: YES Lack of Food: Never True Current Housing: I Have Housing Concerned About Future Housing: No Difficulty Paying Gas/Electric Bills: No Difficulty Paying for Meds: No Currently Unemployed: No Education: High School Diploma/GED Difficulty w/ Childcare or Family Care: No Living arrangements: with family Additional living arrangements comments: Lives with son in [place]. Occupation/Education: retired Spiritual care concerns: No Meds Home Medications and Allergies Home Medications Medication Instructions Recorded Confirmed
[2023-09-18] MEDS: WATER FOR IRRIGATION, STERILE 1,000 ML BOTTLE 1000 ML (23:59)
[2023-09-19] VITALS (20 sets, daily range): BP systolic 107–124; BP diastolic 49–87; PULSE 73–94; RESP 18–21; TEMP 36.8–36.9; O2SAT 91–96
[2023-09-19 01:17] LABS: Influenza A QL RT-PCR Negative (Negative); Influenza B QL RT-PCR Negative (Negative); RSV RNA, RT-PCR Negative (Negative); SARS-CoV-2 RNA PCR Negative (Negative)
[2023-09-19] MEDS: IPRATROPIUM BR 0.02% INH SOLN 0.5 MG/2.5 ML VIAL INHALATION ×3 (02:27→21:03)
[2023-09-19] MEDS: LEVALBUTEROL NEB 1.25 MG/3 ML 0.63 MG INHALATION ×3 (02:27→21:02)
[2023-09-19 04:48] LABS: Hematocrit 35.4 % (37.0-47.0); Mean Corpuscular HGB Conc 31.1 g/dl (32-36); Mean Corpuscular Hemoglobin 30.6 pg (26-34); Mean Corpuscular Volume 98.3 fl (80-100); Mean Platelet Volume 10.3 fl (7.4-10.4); Platelet Count Result 350 k/mm3 (150-375); Red Cell Distribution Width 14.1 % (11.5-14.5); White Blood Count 15.5 K/mm3 (4.5-10.0)
[2023-09-19 04:57] LABS: Anion Gap 3 mmol/L (4-12); Blood Urea Nitrogen 15 mg/dL (7-17); Calcium 9.4 mg/dL (8.4-10.2); Carbon Dioxide 38 mmol/L (22-30); Chloride 96 mmol/L (98-107); Estimated CRCL calculation 114 ml/min; Estimated Glomerular Filt Rate > 60; Glucose 287 mg/dL (65-110); Magnesium 2.8 mg/dL (1.6-2.3); Sodium 137 mmol/L (137-145)
[2023-09-19 05:37] LABS: Thyroid Stimulating Hormone Reflex 0.274 uIU/mL (0.465-4.68)
[2023-09-19 06:32] LABS: Free T4 Free Thyroxine Reflex 1.34 ng/dL (0.78-2.19)
[2023-09-19] MEDS: INSULIN ASPART (*BKC) 100 UNITS/ML SUB-Q ×3 (07:50→16:56)
[2023-09-19 07:51] LABS: Glucose Point of Care 290 mg/dl (65-105)
[2023-09-19] MEDS: ENOXAPARIN 40 MG/0.4 ML SYRINGE SUB-Q (07:52)
[2023-09-19] MEDS: predniSONE 20 MG TABLET 40 MG PO (07:53)
[2023-09-19] MEDS: guaiFENesin 12 HR 600 MG TABCR PO ×2 (07:55→21:16)
[2023-09-19] MEDS: NICOTINE (*PBKC) 21 MG PATCH 1 PATCH TRANSDERM (11:24)
[2023-09-19 12:09] LABS: Glucose Point of Care 287 mg/dl (65-105)
[2023-09-19 13:22] LABS: Total Triiodothyronine (T3) 0.58 NG/ML (0.97-1.69)
--- NOTE | 2023-09-19 13:47 | PM.IMPN ---
Progress Note: A&P Assessment and Plan (1) Pneumonia: Code(s): J18.9 - Pneumonia, unspecified organism Status: Acute (2) Acute and chronic respiratory failure with hypoxia: Code(s): J96.21 - Acute and chronic respiratory failure with hypoxia Status: Acute (3) COPD exacerbation: Code(s): J44.1 - Chronic obstructive pulmonary disease with (acute) exacerbation Status: Acute (4) Tobacco abuse disorder: Code(s): Z72.0 - Tobacco use Status: Acute (5) Type 2 diabetes mellitus with hyperglycemia, without long-term current use of insulin: Code(s): E11.65 - Type 2 diabetes mellitus with hyperglycemia Status: Acute (6) Hypothyroidism: Code(s): E03.9 - Hypothyroidism, unspecified Status: Acute Plan The patient presented to the emergency department for evaluation of progressive shortness of breath over the last couple of weeks. Eighty workup leukocytosis of 18,000 hemoglobin of 12. Normal renal function. ABG 7.36/59/68/33. Chest x-ray with moderate interstitial edema possible small bilateral pleural effusions. CTA was performed which showed no evidence of PE diffuse tree-in-bud opacities concerning for atypical infection. Moderate to severe emphysema. His diagnosed with COPD is which is treated with steroid and scheduled bronchodilators. Respiratory panel has been ordered. Legionella pneumococcal and mycoplasma. Sputum culture. Continue ceftriaxone and azithromycin. Oxygen supplementation to help with respiratory failure acute on chronic continue to smoke and nicotine patch ordered. Type 2 diabetes on insulin SSI on glimepiride and metformin at home. DVT prophylaxis Lovenox Subjective Date/time seen: 09/19/23 13:47 Interval history: Feeling better. Oxygen requirement down to 8. Cough and shortness of breath wheezy Review of Systems Review of Systems: All systems reviewed & are unremarkable except as noted in HPI and below Exam Narrative: General: Mildly ill-appearing female sitting up in bed in no acute distress. HEENT: PERRL, EOMI. Sclera anicteric. Oral mucosa moist. Neck: Supple. No JVD. Respiratory: Respirations are nonlabored and she is speaking in full sentences. Currently on 8 L high-flow. Lung sounds are diminished with end-expiratory wheezing and scattered rales. Cardiovascular: Regular rate and rhythm with S1-S2. Gastrointestinal: Abdomen is soft, nontender, and nondistended with positive bowel sounds. Skin: Warm and dry. No rash or lesions on limited exam. Extremities: No cyanosis, clubbing, or edema. Radial and pedal pulses intact. Neurological: Alert. Cranial nerves 2-12 are grossly intact. No gross focal deficits to casual conversation. Psychiatric: Pleasant and cooperative with normal mood and affect. Judgment and insight intact. Objective Data Vital Signs Vital Signs: Vital Signs - 24 hr 09/18/23 17:36 09/18/23 17:41 09/18/23 17:46 Temperature 98.5 F Pulse Rate 143 H Respiratory Rate 25 H Blood Pressure 125/83 Pulse Oximetry 68 L 83 L 90 Oxygen Delivery Nasal Cannula Nasal Cannula Non-Rebreather Mask Oxygen Flow Rate 6 7 15 09/18/23 17:57 09/18/23 18:22 09/18/23 17:57 Temperature Pulse Rate 115 H 127 H Respiratory Rate 22 H 25 H Blood Pressure Pulse Oximetry 94 94 Oxygen Delivery High Flow Therapy with Fa Oxygen Flow Rate 10 09/18/23 18:00 09/18/23 18:01 09/18/23 18:26 Temperature Pulse Rate 128 H 130 H 117 H Respiratory Rate 27 H 24 H 25 H Blood Pressure 123/90 Pulse Oximetry 95 96 95 Oxygen Delivery Oxygen Flow Rate 09/18/23 18:30 09/18/23 18:46 09/18/23 19:10 Temperature Pulse Rate 113 H 127 H 128 H Respiratory Rate 23 H 30 H 30 H Blood Pressure Pulse Oximetry 90 91 Oxygen Delivery Oxygen Flow Rate 09/18/23 19:29 09/18/23 19:30 09/18/23 19:56 Temperature Pulse Rate 115 H 111 H 111 H Respiratory Rate 27 H 27 H 24 H Blood P
[2023-09-19] MEDS: INSULIN ASPART (*BKC) 100 UNITS/ML 6 UNITS SUB-Q (16:56)
[2023-09-19 16:58] LABS: Glucose Point of Care 278 mg/dl (65-105)
[2023-09-19] MEDS: buPROPion HCL 100 MG TABLET PO (17:26)
[2023-09-19 20:50] LABS: Glucose Point of Care 173 mg/dl (65-105)
[2023-09-19] MEDS: AZITHROMYCIN 500 MG/NS 250 ML 500 MG/250 ML BAG 250 MG IVPB (21:15)
[2023-09-19] MEDS: INSULIN GLARGINE (*BKC) 100 UNITS/ML 15 UNITS SUB-Q (22:03)
--- NOTE | 2023-09-19 22:34 | PC.NURSE ---
Sbar faxed to 3rd med/surg. Verbal report given to RN receiving patient. No change in patient's condition from 1999 assessment. Transferring to room 317 bed 2 via wheelchair, hospital staff, and all belongings.
[2023-09-19 23:08] LABS: Hemoglobin A1C 7.1 % (<5.7)
[2023-09-20] VITALS (11 sets, daily range): BP systolic 112–124; BP diastolic 58–64; PULSE 63–91; RESP 13–20; TEMP 36.1–37.1; O2SAT 90–95
[2023-09-20] MEDS: LEVOTHYROXINE SODIUM 100 MCG TABLET PO (05:38)
[2023-09-20] MEDS: LEVOTHYROXINE SODIUM 75 MCG TABLET PO (05:38)
[2023-09-20 06:25] LABS: Basophils Absolute Auto 0.1 K/mm3 (0.0-0.1); Basophils Percent Auto 0.3 % (0.2-1.2); Eosinophils Absolute Auto 0.1 K/mm3 (0-0.3); Eosinophils Percent Auto 0.4 % (0-4.4); Hemoglobin 10.7 g/dL (12.0-15.0); Immature Granulocyte Absolute 0.24 K/mm3 (0.00-0.031); Immature Granulocyte Percent A 1.5 % (0-0.5); Lymphocytes Absolute Auto 1.85 K/mm3 (0.9-3.2); Lymphocytes Percent Auto 11.4 % (18.3-44.2); Mean Corpuscular HGB Conc 29.7 g/dl (32-36); Mean Corpuscular Hemoglobin 29.8 pg (26-34); Mean Corpuscular Volume 100.3 fl (80-100); Mean Platelet Volume 10.3 fl (7.4-10.4); Monocytes Absolute Auto 1.2 K/mm3 (0.1-0.6); Monocytes Percent Auto 7.6 % (2.6-8.5); Neutrophils Absolute Auto 12.9 K/mm3 (1.3-6.7); Neutrophils Percent Auto 78.8 % (45.5-73.1); Platelet Count Result 370 k/mm3 (150-375); Red Blood Count 3.59 M/mm3 (4.2-5.4); Red Cell Distribution Width 14.3 % (11.5-14.5); White Blood Count 16.3 K/mm3 (4.5-10.0)
[2023-09-20 07:30] LABS: Alanine Aminotransferase 45 U/L (6-35); Albumin Level 3.6 g/dL (3.5-5.1); Alkaline Phosphatase 148 U/L (38-126); Anion Gap 4 mmol/L (4-12); Aspartate Amino Transferase 31 U/L (14-36); Bilirubin,Total 0.4 mg/dL (0.2-1.3); Blood Urea Nitrogen 20 mg/dL (7-17); Calcium 9.1 mg/dL (8.4-10.2); Carbon Dioxide 39 mmol/L (22-30); Chloride 95 mmol/L (98-107); Estimated CRCL calculation 98 ml/min; Estimated Glomerular Filt Rate > 60; Glucose 195 mg/dL (65-110); Magnesium 2.5 mg/dL (1.6-2.3); Potassium 3.6 mmol/L (3.4-5.0); Sodium 138 mmol/L (137-145)
[2023-09-20] MEDS: LEVALBUTEROL NEB 1.25 MG/3 ML 0.63 MG INHALATION ×3 (08:00→19:26)
[2023-09-20] MEDS: IPRATROPIUM BR 0.02% INH SOLN 0.5 MG/2.5 ML VIAL INHALATION ×3 (08:00→19:26)
[2023-09-20 08:11] LABS: Glucose Point of Care 189 mg/dl (65-105)
[2023-09-20] MEDS: INSULIN ASPART (*BKC) 100 UNITS/ML 6 UNITS SUB-Q ×3 (08:29→17:12)
[2023-09-20] MEDS: NICOTINE (*PBKC) 21 MG PATCH 1 PATCH TRANSDERM (08:31)
[2023-09-20] MEDS: ENOXAPARIN 40 MG/0.4 ML SYRINGE SUB-Q (08:35)
[2023-09-20] MEDS: SIMVASTATIN 20 MG TABLET PO (08:35)
[2023-09-20] MEDS: MELOXICAM 7.5 MG TABLET 15 MG PO (08:35)
[2023-09-20] MEDS: CHOLECALCIFEROL 1,000 UNITS TABLET 1000 UNITS PO (08:35)
[2023-09-20] MEDS: guaiFENesin 12 HR 600 MG TABCR PO ×2 (08:35→21:18)
[2023-09-20] MEDS: ASPIRIN 81 MG ENTERIC TABLET PO (08:36)
[2023-09-20] MEDS: predniSONE 20 MG TABLET 40 MG PO (08:37)
[2023-09-20] MEDS: buPROPion HCL 100 MG TABLET PO ×2 (08:43→17:17)
[2023-09-20] MEDS: FLUTICASONE/UMECLIDIN/VILANTER 100-62.5-25 MCG ELLIPTA 1 PUFF INHALATION (08:57)
[2023-09-20 11:19] LABS: Glucose Point of Care 138 mg/dl (65-105)
--- NOTE | 2023-09-20 14:21 | PM.IMPN ---
Progress Note: A&P Assessment and Plan (1) Pneumonia: Code(s): J18.9 - Pneumonia, unspecified organism Status: Acute (2) Acute and chronic respiratory failure with hypoxia: Code(s): J96.21 - Acute and chronic respiratory failure with hypoxia Status: Acute (3) COPD exacerbation: Code(s): J44.1 - Chronic obstructive pulmonary disease with (acute) exacerbation Status: Acute (4) Tobacco abuse disorder: Code(s): Z72.0 - Tobacco use Status: Acute (5) Type 2 diabetes mellitus with hyperglycemia, without long-term current use of insulin: Code(s): E11.65 - Type 2 diabetes mellitus with hyperglycemia Status: Acute (6) Hypothyroidism: Code(s): E03.9 - Hypothyroidism, unspecified Status: Acute Plan The patient presented to the emergency department for evaluation of progressive shortness of breath over the last couple of weeks. Eighty workup leukocytosis of 18,000 hemoglobin of 12. Normal renal function. ABG 7.36/59/68/33. Chest x-ray with moderate interstitial edema possible small bilateral pleural effusions. CTA was performed which showed no evidence of PE diffuse tree-in-bud opacities concerning for atypical infection. Moderate to severe emphysema. His diagnosed with COPD is which is treated with steroid and scheduled bronchodilators. Respiratory panel has been ordered. Legionella pneumococcal and mycoplasma. Sputum culture. Continue ceftriaxone and azithromycin. Oxygen supplementation to help with respiratory failure acute on chronic continue to smoke and nicotine patch ordered. Type 2 diabetes on insulin SSI on glimepiride and metformin at home. DVT prophylaxis Lovenox Continues to improve oxygen status. PT OT to see Subjective Date/time seen: 09/20/23 14:21 Interval history: Feeling better. Oxygen requirement is down to 6. This her baseline has not ambulated much. She is coughing up more phlegm Review of Systems Review of Systems: All systems reviewed & are unremarkable except as noted in HPI and below Exam Narrative: General: Mildly ill-appearing female sitting up in bed in no acute distress. HEENT: PERRL, EOMI. Sclera anicteric. Oral mucosa moist. Neck: Supple. No JVD. Respiratory: Respirations are nonlabored and she is speaking in full sentences. Currently on 6 L high-flow. Lung sounds are diminished with few end-expiratory wheezing and scattered rales. Cardiovascular: Regular rate and rhythm with S1-S2. Gastrointestinal: Abdomen is soft, nontender, and nondistended with positive bowel sounds. Skin: Warm and dry. No rash or lesions on limited exam. Extremities: No cyanosis, clubbing, or edema. Radial and pedal pulses intact. Neurological: Alert. Cranial nerves 2-12 are grossly intact. No gross focal deficits to casual conversation. Psychiatric: Pleasant and cooperative with normal mood and affect. Judgment and insight intact. Objective Data Vital Signs Vital Signs: Vital Signs - 24 hr 09/19/23 15:29 09/19/23 16:00 09/19/23 17:00 Temperature 98.4 F Pulse Rate 73 Respiratory Rate 21 H Blood Pressure 115/49 L Pulse Oximetry 95 94 93 Oxygen Delivery High Flow Nasal Cannula High Flow Nasal Cannula Oxygen Flow Rate 8 6 09/19/23 21:04 09/19/23 21:06 09/19/23 20:00 Temperature Pulse Rate 79 79 Respiratory Rate 20 20 Blood Pressure Pulse Oximetry 94 94 Oxygen Delivery High Flow Nasal Cannula High Flow Nasal Cannula Oxygen Flow Rate 6 6 09/20/23 06:00 09/20/23 08:00 09/20/23 08:00 Temperature 98.7 F Pulse Rate 77 83 83 Respiratory Rate 20 20 20 Blood Pressure 124/64 Pulse Oximetry 95 91 Oxygen Delivery High Flow Nasal Cannula Oxygen Flow Rate 7 09/20/23 08:10 09/20/23 08:00 09/20/23 13:23 Temperature Pulse Rate 86 Respiratory Rate 20 Blood Pressure Pulse Oximetry 90 91 Oxygen Delivery High Flow Therapy with Na High Flow Nasal Cannula Oxygen Flow Rate
[2023-09-20 16:39] LABS: Glucose Point of Care 268 mg/dl (65-105)
[2023-09-20] MEDS: INSULIN ASPART (*BKC) 100 UNITS/ML SUB-Q (17:12)
[2023-09-20 20:53] LABS: Glucose Point of Care 182 mg/dl (65-105)
[2023-09-20] MEDS: AZITHROMYCIN 500 MG/NS 250 ML 500 MG/250 ML BAG 250 MG IVPB (21:12)
[2023-09-20] MEDS: INSULIN GLARGINE (*BKC) 100 UNITS/ML 15 UNITS SUB-Q (21:14)
[2023-09-20] MEDS: SODIUM CHLORIDE 0.9% IV 100 ML (21:19)
[2023-09-21] VITALS (9 sets, daily range): BP systolic 110–143; BP diastolic 48–67; PULSE 79–103; RESP 16–20; TEMP 36.1–36.2; O2SAT 91–93
--- NOTE | 2023-09-21 | ECHO_ITS ---
Patient Info Name: Sarah Rodriguez Age: 68 years : 1955 Gender: Female Ht: 67 in Wt: 242 lbs BSA: 2.33 m2 HR: 80 bpm BP: 110 / 48 mmHg Heart Rhythm: Sinus Rhythm Technical Quality: Fair Exam Date: 09/21/2023 1:28 PM Exam Location: Echo Lab Exam Room: [facility] Patient Status: Inpatient Admit Date: 09/20/2023 Staff Ordering Physician: Tejas Mars MD (hui/sarath) Residential Support Specialist: Daniela Babin RDCS Attending Provider: Johann Garcia MD Referring Physician: Jerad APARICIO; Exam Type: CA echo dop color flow w con Study Info Indications - ATRIAL FLUTTER Complete two-dimensional, color flow and Doppler transthoracic echocardiogram is performed with contrast to opacify the left ventricle and to improve the deliniation of the left ventricle endocardial borders. Contrast/Agitated Saline Contrast/Ag. Saline: Definity Amount: 2.00 ml Administered By: Daniela Babin [facility] Existing IV Access: Yes IV Access Condition: patent with no signs of infiltration Summary 1. Left ventricular chamber dimension is normal. 2. Left ventricular systolic function is normal, estimated at >70%. 3. There is mildly increased left ventricular wall thickness. 4. The left ventricular diastolic function is grade I diastolic dysfunction. 5. Right ventricular systolic function is normal. 6. No significant valvular disease. Left Ventricle Left ventricular chamber dimension is normal. Left ventricular systolic function is normal, estimated at >70%. There is mildly increased left ventricular wall thickness. The left ventricular diastolic function is grade I diastolic dysfunction. Right Ventricle Right ventricular chamber dimension is normal. Right ventricular systolic function is normal. Left Atria Left atrial chamber dimension is normal. Right Atria Right atrial chamber dimension is normal. Atrial Septum Intact interatrial septum visualized by color flow imaging. Aortic Valve The aortic valve is probable trileaflet. There is no aortic valve stenosis. There is no aortic valve regurgitation. Pulmonic Valve The pulmonic valve is not well visualized. There is no pulmonic regurgitation. Mitral Valve There is trace mitral valve regurgitation. The mitral valve annulus is mildly calcified. Tricuspid Valve There is trace tricuspid valve regurgitation. Pericardium/Pleural The pericardium appears epicardial fat pad. There is no pericardial effusion. Inferior Vena Cava Normal inferior vena cava with >50% collapse upon inspiration consistent with normal right atrial pressure, 3 mmHg. Aorta The aortic root size at the sinus of Valsalva is normal. Left Ventricular Outflow Tract Name Value Normal LVOT 2D LVOT Diameter 2.08 cm LVOT Doppler LVOT Peak Gradient 6 mmHg LVOT Mean Gradient 4 mmHg LVOT VTI 25.16 cm LVOT VTI/AV VTI Ratio 0.83 LVOT Stroke Volume 85.20 ml LVOT CO 19.47 l/min LVOT CI 8.37 L/min/m2 Pulmonic Valve
[2023-09-21] MEDS: LEVALBUTEROL NEB 1.25 MG/3 ML 0.63 MG INHALATION ×2 (01:50→14:18)
[2023-09-21] MEDS: IPRATROPIUM BR 0.02% INH SOLN 0.5 MG/2.5 ML VIAL INHALATION ×2 (01:51→14:19)
[2023-09-21] MEDS: LEVOTHYROXINE SODIUM 75 MCG TABLET PO (04:55)
[2023-09-21] MEDS: LEVOTHYROXINE SODIUM 100 MCG TABLET PO (04:55)
[2023-09-21 06:05] LABS: Basophils Absolute Auto 0.1 K/mm3 (0.0-0.1); Basophils Percent Auto 0.3 % (0.2-1.2); Eosinophils Absolute Auto 0.1 K/mm3 (0-0.3); Eosinophils Percent Auto 0.6 % (0-4.4); Hematocrit 33.8 % (37.0-47.0); Hemoglobin 10.3 g/dL (12.0-15.0); Immature Granulocyte Absolute 0.33 K/mm3 (0.00-0.031); Immature Granulocyte Percent A 2.3 % (0-0.5); Lymphocytes Absolute Auto 2.14 K/mm3 (0.9-3.2); Lymphocytes Percent Auto 14.9 % (18.3-44.2); Mean Corpuscular HGB Conc 30.5 g/dl (32-36); Mean Corpuscular Hemoglobin 30.4 pg (26-34); Mean Corpuscular Volume 99.7 fl (80-100); Mean Platelet Volume 9.9 fl (7.4-10.4); Monocytes Absolute Auto 1.1 K/mm3 (0.1-0.6); Monocytes Percent Auto 7.3 % (2.6-8.5); Neutrophils Absolute Auto 10.7 K/mm3 (1.3-6.7); Neutrophils Percent Auto 74.6 % (45.5-73.1); Platelet Count Result 369 k/mm3 (150-375); Red Blood Count 3.39 M/mm3 (4.2-5.4); Red Cell Distribution Width 14.4 % (11.5-14.5); White Blood Count 14.4 K/mm3 (4.5-10.0)
[2023-09-21 06:30] LABS: Alanine Aminotransferase 35 U/L (6-35); Albumin Level 3.4 g/dL (3.5-5.1); Alkaline Phosphatase 121 U/L (38-126); Aspartate Amino Transferase 22 U/L (14-36); Bilirubin,Total 0.4 mg/dL (0.2-1.3); Blood Urea Nitrogen 17 mg/dL (7-17); Calcium 9.1 mg/dL (8.4-10.2); Carbon Dioxide > 40 mmol/L (22-30); Chloride 95 mmol/L (98-107); Estimated CRCL calculation 99 ml/min; Estimated Glomerular Filt Rate > 60; Glucose 152 mg/dL (65-110); Magnesium 2.3 mg/dL (1.6-2.3); Potassium 3.7 mmol/L (3.4-5.0); Sodium 138 mmol/L (137-145)
[2023-09-21 07:46] LABS: Glucose Point of Care 155 mg/dl (65-105)
[2023-09-21] MEDS: FLUTICASONE/UMECLIDIN/VILANTER 100-62.5-25 MCG ELLIPTA 1 PUFF INHALATION (07:50)
[2023-09-21] MEDS: INSULIN ASPART (*BKC) 100 UNITS/ML 6 UNITS SUB-Q ×3 (08:34→17:14)
[2023-09-21] MEDS: ENOXAPARIN 40 MG/0.4 ML SYRINGE SUB-Q (08:34)
[2023-09-21] MEDS: predniSONE 20 MG TABLET 40 MG PO (08:35)
[2023-09-21] MEDS: buPROPion HCL 100 MG TABLET PO ×2 (08:35→16:27)
[2023-09-21] MEDS: SIMVASTATIN 20 MG TABLET PO (08:35)
[2023-09-21] MEDS: guaiFENesin 12 HR 600 MG TABCR PO (08:35)
[2023-09-21] MEDS: MELOXICAM 7.5 MG TABLET 15 MG PO (08:35)
[2023-09-21] MEDS: ASPIRIN 81 MG ENTERIC TABLET PO (08:35)
[2023-09-21] MEDS: CHOLECALCIFEROL 1,000 UNITS TABLET 1000 UNITS PO (08:36)
[2023-09-21] MEDS: NICOTINE (*PBKC) 21 MG PATCH 1 PATCH TRANSDERM (08:37)
[2023-09-21 11:36] LABS: Glucose Point of Care 160 mg/dl (65-105)
--- NOTE | 2023-09-21 13:22 | PM.CNCAR ---
Assessment and Plan Assessment and plan (1) Paroxysmal atrial flutter: Code(s): I48.92 - Unspecified atrial flutter Status: Acute Assessment and Plan: New diagnosis of atrial flutter for the patient. In setting of COPD exacerbation and pneumonia. Currently in sinus rhythm. TSH level is mildly low, however T4 normal. As patient already in sinus rhythm, will hold off on starting beta jacinto given her moderate-severe emphysema. [id number] of 4 (age, sex, CHF history, diabetes). Recommend anticoagulation for stroke risk reduction. Discussed indication for anticoagulation with the patient, risks vs benefits. Patient agreeable. Will start Eliquis 5mg BID. Will have patient wear a 14 day event monitor at time of discharge to assess burden of AF. Order for the monitor placed. Echocardiogram ordered and pending. Will have her follow up with Dr. Wallace in the clinic. (2) Acute and chronic respiratory failure with hypoxia: Code(s): J96.21 - Acute and chronic respiratory failure with hypoxia Status: Acute Assessment and Plan: As per primary team (3) COPD exacerbation: Code(s): J44.1 - Chronic obstructive pulmonary disease with (acute) exacerbation Status: Acute Assessment and Plan: As per primary team (4) Pneumonia: Code(s): J18.9 - Pneumonia, unspecified organism Status: Acute Assessment and Plan: On antibiotics. History of Present Illness History of Present Illness Consult date/time: 09/21/23 13:22 Requesting physician: Nelson Ye MD Consult reason: Other (Atrial flutter) Reason For Visit: pneumonia, copd exacerbation Narrative: We are consulted for atrial flutter. This is a 68 year old female with heart failure with preserved LVEF, COPD, chronic hypoxic respiratory failure, type 2 diabetes, hyperlipidemia who was admitted on 09/17 for shortness of breath, found to have COPD exacerbation, pneumonia. On 09/17, EKG shows atypical atrial flutter with RVR with ventricular rate of 142bpm. She has been in sinus rhythm since then on tele. She denies any chest pain, feels like her breathing is currently stable now, no palpitations. Follows with Dr. Wallace in our office. Review of Systems Review of Systems: All systems reviewed & are unremarkable except as noted in HPI and below (HPI) [facility] Past Medical History Medical History Centrilobular emphysema Chronic obstructive pulmonary disease Chronic respiratory failure with hypoxia, on home oxygen therapy Claudication of both lower extremities Hypothyroidism Mixed hyperlipidemia Polycythemia secondary to hypoxia Tobacco abuse disorder Type 2 diabetes mellitus with hyperglycemia, without long-term current use of insulin Surgical History Surgical History History of tonsillectomy History of tubal ligation Family History Family History Mother Diabetes mellitus Hypertension Family history of arthritis Family history of thyroid disease Patient's mother is Sibling Diabetes mellitus Asthma Patient's brother is in good health Family history of thyroid disease Father Patient's father is in good health Social History Social History Social History: Surrogate medical decision maker: Ekta Chaidez, sibling. Code status: Full code. Smoking packs per day: 1 Smoking cigarettes per day: 20.0 Years smoked: 50 Smoking pack-years: 50.00 Smoking status: Current every day smoker Tobacco type: cigarettes Second hand tobacco smoke exposure: Yes Alcohol intake: never Substance use: never Substance use type: does not use Do You Feel Safe in your Home?: Yes Lack of Transportation: YES Lack of Food: Never True Current Housing: I Have Hous
[2023-09-21] MEDS: PERFLUTREN LIPID MICROSPHERES 1.5 ML VIAL DILUTED TO 10 ML TOTAL VOLUME IV PUSH (14:10)
--- NOTE | 2023-09-21 14:46 | IVDEFINITY ---
Prior to administration of IV Definity the patient was educated on the risks and benefits of the imaging enhancing agent including potential adverse side effects. The patient verbalized understanding. Allergies were verified. No exclusion criteria were identified and at least one of the following inclusion criteria were met: 1) physician request, 2) patient technically difficult to image (per the [place] [employer] guidelines of two or more segments not discernable within the apical view), or 3) questionable left ventricular function. ?
[2023-09-21 17:00] LABS: Glucose Point of Care 270 mg/dl (65-105)
--- NOTE | 2023-09-21 17:12 | PM.DS ---
DS: Admitting Diagnosis Discharge Date 09/21/23 Admitting Diagnosis Shortness of breath DS: Discharge Diagnosis Discharge Diagnosis (1) Pneumonia: Code(s): J18.9 - Pneumonia, unspecified organism Status: Acute (2) Acute and chronic respiratory failure with hypoxia: Code(s): J96.21 - Acute and chronic respiratory failure with hypoxia Status: Acute (3) COPD exacerbation: Code(s): J44.1 - Chronic obstructive pulmonary disease with (acute) exacerbation Status: Acute (4) Tobacco abuse disorder: Code(s): Z72.0 - Tobacco use Status: Acute (5) Type 2 diabetes mellitus with hyperglycemia, without long-term current use of insulin: Code(s): E11.65 - Type 2 diabetes mellitus with hyperglycemia Status: Acute (6) Hypothyroidism: Code(s): E03.9 - Hypothyroidism, unspecified Status: Acute (7) Paroxysmal atrial flutter: Code(s): I48.92 - Unspecified atrial flutter Status: Acute (8) Chronic respiratory failure with hypoxia, on home oxygen therapy: Code(s): J96.11 - Chronic respiratory failure with hypoxia; Z99.81 - Dependence on supplemental oxygen Status: Acute DS: Summary Hospital Course Reason for hospitalization: 68yo female with COPD, Chronic resp failure on 6L, and DM here for shortness fo breath. Please see H&P for details. Hospital Course: The patient presented to the emergency department for evaluation of progressive shortness of breath over the last couple of weeks. No fevers noted. WBC was 18K. ABG 7.37/60/68 on 15L NRB mask. Influenza, COVID and RSV PCR were negative. CXR showing moderate interstitial edema. CTA chest showing moderate-severe emphysematous changes and diffuse reticulonodular opacities c/w atypical infection but no PE. EKG showing atypical aflutter with RVR. Echo showing EF 70% with grade I diastolic dysfunction and mild LV wall thickness. She was treated with steroids, abx and bronchodilators. She had clinical improvement and was able to be weaned to 6L. She feels well and is requesting discharge. She was able to be discharge home on 09/21/23 Status at Discharge Cognitive/behavioral status at discharge: stable Time Spent with Patient Time attestation: Total time spent providing and/or coordinating discharge services: 35 minutes Time spent: Greater than 30 minutes Exam Narrative: AF 97.2 143/67 89 18 92% 6L Gen - NARD sitin gup in bed Chest - bibasilar dry crackles o/w distant BS CV - RRR S1/S2 Abd - Soft, NT/ND, Positive BS Ext - No pedal edema Psych - Nml mood and affect Skin - Warm and dry DS: Data Data Completed and Pending Labs on day of discharge: Labs from last 24 hours 09/21/23 09/21/23 09/21/23 16:57 11:33 07:44 WBC RBC Hgb Hct MCV MCH MCHC RDW Plt Count MPV Immature Gran % (Auto) Neut % (Auto) Lymph % (Auto) Luce % (Auto) Eos % (Auto) Baso % (Auto) Lymph # (Auto) Luce # (Auto) Eos # (Auto) Baso # (Auto) Abs Immat Gran (auto) Absolute Neuts (auto) Absolute Nucleated RBC Nucleated RBC % Sodium Potassium Chloride Carbon Dioxide Anion Gap BUN Creatinine Estim Creat Clear Calc Estimated GFR Glucose POC Capillary Glucose 270 H 160 H 155 H Calcium Magnesium Total Bilirubin AST ALT Alkaline Phosphatase Total Protein Albumin 09/21/23 09/20/23 05:44 20:28 WBC 14.4 H RBC 3.39 L Hgb 10.3 L Hct 33.8 L MCV 99.7 MCH 30.4 MCHC 30.5 L RDW 14.4 Plt Count 369 MPV 9.9 Immature Gran % (Auto) 2.3 H Neut % (Auto) 74.6 H Lymph % (Auto) 14.9 L Luce % (Auto) 7.3 Eos % (Auto) 0.6 Baso % (Auto) 0.3 Lymph # (Auto) 2.14 Luce # (Auto) 1.1 H Eos # (Auto) 0.1 Baso # (Auto) 0.1 Abs Immat Gran (auto) 0.33 H Absolute Neuts (auto) 10.7 H Absolute Nucleated RBC 0.000 Nucleat
[2023-09-21] MEDS: INSULIN ASPART (*BKC) 100 UNITS/ML SUB-Q (17:14)
[2023-09-21 23:52] LABS: Pneumococcal Antigen Urine Not Detected (Not Detected)
[2023-09-22 13:28] LABS: Mycoplasma IgM Antibody Titer 137 U/mL (<770)
[2023-09-23 04:34] LABS: Legionella pneumophila Ag Ur Not Detected (Not Detected)
== END 2023-09-21 18:30 | disposition home or self-care (01) | DRG 193 ==
LOC: ANHED 19:50 → ANHIMU 20:03 → ANH3MEDSUR 09-19 23:39
PROVIDERS: Physician Assistant; Admitting Provider Internal Medicine; Emergency Provider Emergency Medicine; PCP Family Medicine; Visit Provider Internal Medicine
DX: J18.9 Pneumonia, unspecified organism (principal); J96.21 Acute and chronic respiratory failure with hypoxia; J44.0 Chronic obstructive pulmonary disease with (acute) lower respiratory infection; J44.1 Chronic obstructive pulmonary disease with (acute) exacerbation; I50.32 Chronic diastolic (congestive) heart failure; I48.92 Unspecified atrial flutter; J43.2 Centrilobular emphysema; E03.9 Hypothyroidism, unspecified; E78.2 Mixed hyperlipidemia; E11.9 Type 2 diabetes mellitus without complications; F17.210 Nicotine dependence, cigarettes, uncomplicated; Z20.822 Contact with and (suspected) exposure to COVID-19; Z99.81 Dependence on supplemental oxygen; Z79.82 Long term (current) use of aspirin
CPT/HCPCS: 36415; 36600; 71045; 71275; 80048; 80053; 82375; 82805; 82948; 83036; 83050; 83735; 84439; 84443; 84480; 85025; 85027; 86738; 87070; 87205; 87449; 87637; 87899; 93005; 94640; 96365; 96366; 96367; 96375; 97161; 97165; 99285; A9270; C8929; G0378; J0456; J0696; J1650; J1815; J2919; J7512; Q9957; Q9967

== ENCOUNTER 2023-11-10 07:59 | Outpatient (CLI) | payer MEDICARE, SELFPAY ==
[2023-11-10] VITALS (8 sets, daily range): PULSE 70–91; O2SAT 87–93
--- NOTE | 2023-11-10 09:46 | HOMEO2EVAL ---
Evaluation was performed at [facility] Home Oxygen Evaluation RC: Home Oxygen (O2) Evaluation Start: 11/10/23 09:39 Freq: Status: Active Protocol: RPE Activity Type Activity Date Activity User E-sign Co-sign Detail Recorded Client Recorded Date Recorded By Document 11/10/23 08:30 HAROON [email or web address] 11/10/23 09:46 HAROON Document 11/10/23 08:31 HAROON [email or web address] 11/10/23 09:46 HAROON Document 11/10/23 08:32 HAROON [email or web address] 11/10/23 09:46 HAROON Document 11/10/23 08:33 HAROON [email or web address] 11/10/23 09:46 HAROON Document 11/10/23 08:34 HAROON [email or web address] 11/10/23 09:46 HAROON Document 11/10/23 08:36 HAROON [email or web address] 11/10/23 09:46 HAROON Document 11/10/23 08:37 HAROON [email or web address] 11/10/23 09:46 HAROON Document 11/10/23 08:45 HAROON [email or web address] 11/10/23 09:46 HAROON 11/10/23 11/10/23 11/10/23 08:30 08:31 08:32 Home O2 Evaluation [Oxygen] -Test Phase Resting Resting Resting -Oxygen Delivery Room Air Nasal Cannula Nasal Cannula -Oxygen Flow Rate (L/min) 2 3 [Pulse Oximetry] -Pulse Oximetry (90-100 %) 87 L 88 L 88 L [Pulse Rate] -Pulse Rate (60-100 beats/min) 70 [Comments] -Home Oxygen Evaluation Comments [Charges] -Evaluation Charges O2 Evaluation by Pulmonary 11/10/23 11/10/23 11/10/23 08:33 08:34 08:36 Home O2 Evaluation [Oxygen] -Test Phase Resting Resting Exercise -Oxygen Delivery Nasal Cannula Nasal Cannula Nasal Cannula -Oxygen Flow Rate (L/min) 4 5 5 [Pulse Oximetry] -Pulse Oximetry (90-100 %) 88 L 92 88 L [Pulse Rate] -Pulse Rate (60-100 beats/min) 88 [Comments] -Home Oxygen Evaluation Comments [Charges] -Evaluation Charges 11/10/23 11/10/23 08:37 08:45 Home O2 Evaluation [Oxygen] -Test Phase Exercise Resting -Oxygen Delivery Nasal Cannula Nasal Cannula -Oxygen Flow Rate (L/min) 6 5 [Pulse Oximetry] -Pulse Oximetry (90-100 %) 91 93 [Pulse Rate] -Pulse Rate (60-100 beats/min) 91 73 [Comments] -Home Oxygen Evaluation Comments Pt used pulse does personal O2. 5 L resting, 6L activity [Charges] -Evaluation Charges
--- NOTE | 2023-11-10 14:42 | P.PCNPFT_ITS ---
PFT Procedure Performed PFT Procedure Performed Spirometry with Pre/Post Bronchodilator Plethysmography (Lung Vol) Diffusing Cap (DLCO) Flow Vol Loop PFT Interpretation Lung volumes were measured with the body plethysmography method. Lung volumes are unremarkable. Spirometry showed diminished expiratory flow rates and a diminished FEV1 to FVC ratios 45%, indicative of obstructive airway disease. Following administration of a bronchodilator there was no significant increase in expiratory flow rates. Lung diffusion capacity is severely reduced at 31% predicted. The diminished lung diffusion capacity coupled with diminished alveolar volume and low DLCO/VA ratio may indicate loss of alveolar capillary structure as seen in emphysema or interstitial lung disease. The flow-volume loop is consistent with emphysema. Compared to the 2019 study, the post- bronchodilator FEV1 remains the same, but the FVC has increased by roughly 0.3 L. Additionally, there is no longer evidence of air trapping. Impression: Moderately severe obstructive airway disease with no response to bronchodilators on this testing. Severely reduced lung diffusion capacity.
== END 2023-11-10 08:00 | disposition home or self-care (01) ==
PROVIDERS: PCP Family Medicine; Visit Provider Physician Assistant
DX: J44.9 Chronic obstructive pulmonary disease, unspecified (principal); J96.11 Chronic respiratory failure with hypoxia; Z99.81 Dependence on supplemental oxygen; R94.2 Abnormal results of pulmonary function studies
CPT/HCPCS: 94060; 94618; 94726; 94729

== ENCOUNTER 2024-10-08 10:29 | Outpatient (CLI) | payer MEDICARE, SELFPAY ==
--- NOTE | ~2024-10-08 | CT_ITS ---
CT Scan of the Chest without Contrast: Clinical Indication: Lung cancer screening, nicotine dependence Technique: Contiguous sections were acquired throughout the chest without intravenous contrast. Dose reduction technique was used on this scan by utilizing automated exposure control and iterative recon struction technique. The dose-length product (DLP) was 311.41 mGy-cm. COMPARISON: 09/18/2023 Findings: There is no evidence of any significant mediastinal, hilar or axillary lymphadenopathy. The mediastin al soft tissues appear normal. There is no evidence of pleural or pericardial effusion. Calcified granulomas are present. Moderate emphysema present. Images through the upper abdomen reveal no abnormalities. Impression: Lung RADS 2: Benign appearance. 12 month follow-up screening CT advised. Moderate emphysema. Reviewed, dictated and finalized at location . Impression: Lung RADS 2: Benign appearance. 12 month follow-up screening CT advised. Moderate emphysema.
--- OUTSIDE RECORDS SUMMARY | 2024-10-08 12:10 | XMS_ITS | Clinical Summary ---
Author Organization [facility] [place] [address] Address [address] [place] [address] Care Team Providers Care Optoelectronics Engineer Name Role Phone Lucille Montiel MD Primary Care Provider Allergies No known active allergies Medications levothyroxine (SYNTHROID) 175 mcg tablet Take 1 tablet (175 mcg total) by mouth daily 1 Active simvastatin (ZOCOR) 20 mg tablet Take 1 tablet (20 mg total) by mouth daily 1 Active metFORMIN (GLUCOPHAGE) 1,000 mg tablet Take 1 tablet (1,000 mg total) by mouth 2 (two) times a day 1 Active glimepiride (AMARYL) 1 mg tablet 1 MG BY MOUTH DAILY 1 Active Trelegy Ellipta 100-62.5-25 mcg inhaler INHALE 1 PUFF BY MOUTH EVERY DAY 1 Active albuterol HFA (PROVENTIL HFA,VENTOLIN HFA,PROAIR HFA) 90 mcg/actuation inhaler INHALE 2 PUFFS BY MOUTH EVERY 4 HOURS NEEDED FOR SHORTNESS OF BREATH/WHEEZIN G 1 Active buPROPion (WELLBUTRIN) 100 mg tablet 100 MG BY MOUTH TWICE A DAY ONE TABLET ONCE DAILY X 3 DAYS, THEN INCREASE TO TWICE A DAY 1 Active aspirin 81 mg enteric coated tablet daily Active Active Problems Problem Noted Date Diagnosed Date Mixed hyperlipidemia 03/16/2021 Chronic diastolic congestive heart failure 03/16 Palpitations 03/16/2021 Chronic respiratory failure with hypoxia and hyp ercapnia 03/16/2021 Surgical History Surgery Date Site/Laterality Comments CHOLECYSTECTOMY Medical History Medical History Date Comments Thyroid disease CHF (congestive heart failure) (HCC) Diabetes mellitus (HCC) Hyperlipidemia Pneumonia COPD (chronic obstructive pulmonary disease) (HC C) Asthma Wears dentures Sinusitis Arthritis Family History Relation Name Status Comments Brother Alive Father Alive Sister Alive Social History Tobacco Use Types Packs/Day Years Used Date Smoking Tobacco: Every Day Cigarettes Smokeless Tobacco: Never Tobacco Cessation:Ready to Q uit: Not Asked; Counseling Given: Not Answered AUDIT-C Answer Date Recorded Q1: How often do you have a drink containing alc ohol? Never 03/16/2021 Average Number of Drinks Not on file 021 Frequency of Binge Drinking Not on file 09/2020 Comments Unknown Sex and Gender Information Value Date Recorded Sex Assigned at Not on file Legal Sex Female 3:16 PM CDT Gender Identity Not on file Sexual Orientation Not on file Obstetrics History Last Filed Vital Signs Vital Sign Reading Time Taken Comments Blood Pressure 110/52 04/30/2024 8:25 AM UROLOGY TEACHER Pulse 84 04/30/2024 8:25 AM UROLOGY TEACHER Temperature - - Respiratory Rate 94 04/30/2024 8:25 AM UROLOGY TEACHER with oxygen Oxygen Saturation 95% 10/20/2023 10: 00 AM CDT Inhaled Oxygen Concentration - - Weight 109.7 kg (241 lb 12. 8 oz) 04/30/2024 8:25 AM UROLOGY TEACHER Height 170.2 cm (5' 7 ) 04/30/2024 8:25 AM UROLOGY TEACHER Body Mass Index 37.87 04/30/2024 8:25 AM UROLOGY TEACHER Plan of Treatment Health Maintenance Due Date Last Done Comments Breast Cancer Screening-Mammogram 1956 Colon Cancer Screening-Colonoscopy 1956 Depression Screening 1956 Fall Risk Assessment 1956 Hepatitis C Screening 1956 Osteoporosis Screening-Bone Density Scan 1956 DTaP/Tdap/Td Vaccine (1 - Tdap) 1967 Hepatitis B Screening 1974 Zoster Vaccine (1 of 2) 2006 Pneumococcal vaccine 65+ (2 of 2 - PCV) 03/14/2017 03/14/2016 Well Visit 65+ 2021 Covid-19 Vaccine (3 - 2023-2 5 season) 2024 10/03/2020, 09/12/2020 Influenza Vaccine (Season Ended) 2025 02/26/2021, 03/22/2020, 03/10/2018, Additional history exists Insurance [id number] [facility] MEDICARE ADVANTAGE [facility] MEDIC[facility] ADVANTAGE Care Teams Optoelectronics Engineer Relationship Specialty Start Date End Date Lucille Montiel MD [address] [facility] [address] [place] [address] PCP - General Family Medicine 03/06/21
--- OUTSIDE RECORDS SUMMARY | 2024-10-08 12:10 | XMS_ITS | CONTINUITY OF CARE DOCUMENT ---
Author Name quirino win Address Unknown Organization [facility] Address [address] [facility] [address] [facility] [address] [place] [address] Phone [phone] Care Team Providers Care Waiter/Waitress Take Out Name Role Phone [email or web address] Unavailable Unavailable INSURANCE PROVIDERS Payer name Policy type / Coverage type [place] red republican ID [facility] [id number]
--- OUTSIDE RECORDS SUMMARY | 2024-10-08 12:10 | XMS_ITS | Referral Summary ---
Author Organization [facility] [address] Address [address] [place] [address] Care Team Providers Care Social Media Analyst Name Role Phone Lucille Montiel MD Primary [...] failure with hypoxia and hyp ercapnia 03/16/2021 Social History Tobacco Use Types Packs/Day Years [...] on file Sexual Orientation Not on file Last Filed Vital Signs Vital Sign Reading Time Taken Comments Blood Pressure 110/52 04/30/2024 8:25 AM DEMURRAGE WORKER Pulse 84 04/30/2024 8:25 AM DEMURRAGE WORKER Temperature - - Respiratory Rate 94 04/30/2024 8:25 AM DEMURRAGE WORKER with oxygen Oxygen Saturation 95% 10/20/2023 10: 00 AM CDT Inhaled Oxygen Concentration - - Weight 109.7 kg (241 lb 12. 8 oz) 04/30/2024 8:25 AM DEMURRAGE WORKER Height 170.2 cm (5' 7 ) 04/30/2024 8:25 AM DEMURRAGE WORKER Body Mass Index 37.87 04/30/2024 8:25 AM DEMURRAGE WORKER Plan of Treatment Not on file Insurance [facility] MEDICARE ADVANTAGE [facility] MEDICARE ADVANTAGE Care Teams Social Media Analyst Relationship Specialty Start Date End Date uLcille Montiel MD [address] [facility] [address] [place] [address] PCP - General Family Medicine 03/06/21
--- OUTSIDE RECORDS SUMMARY | 2024-10-08 12:10 | XMS_ITS | Clinical Summary ---
Author Organization [facility] Magdy Bustamante Address [address] [place] [address] Care Team Providers Care Diabetes Solutions Specialist Name Role Phone Lucille Montiel MD Primary Care Provider [phone] Allergies No known active allergies Medications tiotropium (SPIRIVA RESPIMAT) 2.5 mcg/actuation Mist Spiriva Respimat 2.5 mcg/actuation solution for inhalation Active JANUVIA 100 mg Tablet 0 Active simvastatin (ZOCOR) 20 mg tablet simvastatin 20 mg tablet Active meloxicam (MOBIC) 15 mg tablet 0 Active levothyroxine 175 mcg tablet 0 Active TRELEGY ELLIPTA 100-62.5-25 mcg Disk with Device 9 Active albuterol HFA 90 mcg inhaler albuterol sulfate HFA 90 mcg/actuation aerosol inhaler Active aspirin (Adult Low Dose Aspirin) 81 mg Tablet, Delayed Release (E.C.) every 24 hours. Active buPROPion (WELLBUTRIN) 100 mg tablet 100 MG BY MOUTH TWICE A DAY ONE TABLET ONCE DAILY X 3 DAYS, THEN INCREASE TO TWICE A DAY 1 Active glimepiride (AMARYL) 1 mg tablet 1 MG BY MOUTH DAILY 1 Active linaGLIPtin (Tradjenta) 5 mg Tablet Take 5 mg by mouth. 1 Active metFORMIN (GLUCOPHAGE) 1,000 mg tablet Take 1,000 mg by mouth 2 times daily. 1 Active Active Problems Problem Noted Date Diagnosed Date Erythrocytosis 08/30/2019 Family History Medical History Relation Name Comments Diabetes Brother 1 Cancer Mother Heart Disease Mother Diabetes Sister Diabetes Son 1 Relation Name Status Comments Brother 1 Alive Brother 2 Alive Brother 3 Alive Father Alive Mother Sister Alive Son 1 Alive Son 2 Alive Social History Tobacco Use Types Packs/Day Years Used Date Smoking Tobacco: Every Day Cigarettes 2 25 Smokeless Tobacco: Never Tobacco Cessation:Ready to Q uit: No; Counseling Given: No Alcohol Use Standard Drinks/Week Comments Never 0 (1 standard drink = 0.6 oz pur e alcohol) Comments No Sex and Gender Information Value Date Recorded Sex Assigned at Not on file Legal Sex Female 10:40 PM CDT Gender Identity Not on file Sexual Orientation Not on file Last Filed Vital Signs Vital Sign Reading Time Taken Comments Blood Pressure 104/63 03/17/2021 9:03 AM CDT Pulse 68 03/17/2021 9:03 AM CDT Temperature 36.8 C (98.3 F) 03/17/2021 9:03 AM CDT Respiratory Rate - - Oxygen Saturation 93% 03/17/2021 9:03 AM CDT Inhaled Oxygen Concentration - - Weight 106.4 kg (234 lb 8 oz) 03/17/2021 9:03 AM CDT Height 170.2 cm (5' 7 ) 03/17/2021 9:03 AM CDT Body Mass Index 36.73 03/17/2021 9:03 AM CDT Plan of Treatment Health Maintenance Due Date Last Done Comments DTAP/TDAP/TD VACCINES (1 - Tdap) 1975 PNEUMOCOCCAL VACCINE 50+ YEARS (1 of 2 - PCV) 05/08/19 75 BREAST CANCER SCREENING 1996 COLORECTAL SCREENING 2001 Colorectal Cancer Screening 2001 FIT-DNA Q 3 years 2001 FIT/FOBT Q 1 year 2001 Flex Sig/CT Colonography Q 5 years 2001 ZOSTER VACCINE (1 of 2) 2006 RSV VACCINE (60+ or ) (1 - Risk 60-74 years 1-dose series) 2016 OSTEOPOROSIS SCREENING 2021 INFLUENZA VACCINE (#1) 2024 Insurance [facility] [id number] Care Teams Diabetes Solutions Specialist Relationship Specialty Start Date End Date Lucille Montiel MD PCP - General Family Practice 07/10/19
--- OUTSIDE RECORDS SUMMARY | 2024-10-08 12:10 | XMS_ITS | Encounter Summary ---
Author Organization [facility] Address [address] [place] [address] Care Team Providers Care Call Center Operator Name Role Phone Lucille Montiel MD Primary Care Provider Encounter Details Date Type Department Care Team (Late st Contact Info) Description 09/18/2023 Orders Only [facility] [place] Health Information Management [address] [place] [id number] Scanning, Provider Social History Tobacco Use Types Packs/Day Years Used Date Smoking Tobacco: Every Day Cigarettes Smokeless Tobacco: Never AUDIT-C Answer Date Recorded Q1: How often [...] on file Sexual Orientation Not on file documented as of this encounter Plan of Treatment Not on file documented as of this encounter Procedures Procedure Name Priority Date/Time Associated Diagnosis Comments SCAN - RADIOLOGY/IMAGING 09/18/2023 documented in this encounter Results * SCAN - RADIOLOGY/IMAGING (09/18/2023) Anatomical Region Laterality Modality Other us Provider Scanning Edited Result - Final documented in this encounter Visit Diagnoses Not on filedocumented in this encounter Care Teams Call Center Operator Relationship Specialty Start Date End Date Lucille Montiel MD [address] [facility] [address] [place] [address] PCP - General Family Medicine 03/06/21 documented as of this encounter
== END 2024-10-08 10:30 | disposition home or self-care (01) ==
PROVIDERS: PCP Family Medicine; Visit Provider Physician Assistant
DX: Z12.2 Encounter for screening for malignant neoplasm of respiratory organs (principal); Z87.891 Personal history of nicotine dependence; J43.9 Emphysema, unspecified
CPT/HCPCS: 71271